=== PATIENT | male | born 1990 | race Caucasian/White ===

== ENCOUNTER 2016-09-29 16:55 | Inpatient (IN) | payer OTHER ==
[~2016-09-29] VITALS: Ht 177.8 cm; Wt 68.0 kg
[~2016-09-29 16:55] MED LIST: CEFTIN500 M1 PO; LIALDA1.2 G1 PO; PREDNISONE10 M2 PO; ROWASA 4 G4 GM/60 ML PR; SLOW FE142 MG
--- NOTE | 2016-09-29 17:19 | ED GENERAL ADULT ---
History of Present Illness General Chief Complaint: Chest Pain Stated Complaint: NECK PAIN/CP/SOB Source: patient Exam Limitations: no limitations Vital Signs & Intake/Output Vital Signs & Intake/Output Vital Signs Date Time Temp Pulse Resp B/P B/P Pulse O2 O2 Flow FiO2 Mean Ox Delivery Rate 09/29 1856 93 123/68 09/29 1753 97.0 103 22 122/66 96 Room Air 09/29 1700 98.7 120 18 130/85 120 Allergies Coded Allergies: lactobacillus (Intermediate, ABD PAIN, DIARRHEA 03/06/16) Reconcile Medications Cefuroxime Axetil (Ceftin) 500 MG TABLET 1 TAB PO BID URINARY TRACT INFECTION Ferrous Sulfate (Slow Fe) 142 MG (45 MG IRON) TABLET.ER UC (Reported) Mesalamine (Lialda) 1.2 GRAM TABLET.DR 4 TAB PO DAILY UC (Reported) Mesalamine W/Cleansing Wipes (Rowasa 4 Gm/60 Ml Enema Kit) 4 GRAM/60 ML ENEMA.KIT 4 GM NC AT BEDTIME colitis Prednisone 10 MG TABLET 30 MG PO BID UC (Reported) Triage Note: PT SENT IN BY DR. VERA FOR ? PE. PT WAS SEEN BY PCP AND SENT TO SEE DR. VERA PT HAS UC. PT TOLD DR. VERA THAT HE WAS HAVING CHEST PAIN AND NECK PAIN AND HE WAS SENT TO ED. AND Triage Nurses Notes Reviewed? yes Onset: Gradual Duration: week(s): (1), worse persistent since (3) Timing: no prior history Injury Environment: home Severity: moderate Severity Numbers: 6 Modifying Factors: Worsens With: movement. HPI: Patient is a 25-year-old male with history of ulcerative colitis presenting to the emergency department with chief complaint of shortness of breath and chest pain that has been going on for the last 1 week. Patient reports that it started as bilateral neck pain and shortness of breath. Shortness of breath is worse with exertion. Also worse with deep inspiration. The chest pain developed about 3 days ago and has been constant. Pain is worse when he is laying on his left side or if he is leaning forward. He finds a comfortable position laying flat on his back. Denies any palpitations. Denies any abdominal pain. No fevers or chills. Denies any recent upper respiratory infection or viral illness. No sick contacts or travel. has been taking Tylenol at home without relief. He was told by gastroenterology that he cannot take ibuprofen due to his ulcerative colitis. Denies any bloody stools. No urinary symptoms. No history of similar symptoms in the past. Denies any recent change in medication dosing. Denies any recent travel. Denies any leg swelling. (RAE APONTE) Past History Travel History Traveled to [place] past 21 day No Medical History Any Pertinent Medical History? 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 Age 53. MOTHER (50 y/o- [employer]). Age 50-60. PGM (& breast Ca). , Age 68; Cause: Bladder cancer. Hx Contributory? No (RAE APONTE) Review of Systems Review of Systems Constitutional: Reports: no symptoms. Comments Review of systems: See HPI, All other systems negative. Constitutional, no chills fever or weight loss HEENT: No visual changes no sore throat no congestion Cardiovascular: No palpitation , orthopnea or ankle swelling Skin, no jaundice no rashes Respiratory: No sputum or hemoptysis GI: No nausea no vomiting : No dysuria No hematuria Muscle skeletal: no back pain, no neck pain, Neurologic: No numbness no confusion Psych: No stress anxiety or depression,. Heme/endocrine: No bruising no bleeding no polyuria or polydipsia Immunology: No splenectomy or history of AIDS (RAE APONTE) Physical Exam Physical Exam General Appearance: well developed/nourished, no apparent distress, comfortable Comments: Well-developed well-nourished person in no acute distress HEENT: Pupils equally round and reactive to light and accommodation. Nose is atraumatic. External auditory canal and Tympanic membranes clear. Pharynx normal. No swelling or edema. Moist oral mucosa. Neck: Supple, no lymphadenopathy, normal range of motion without pain or tenderness Back: Nontender Cardiovascular: Tachycardic rate and rhythms no murmurs rubs or gallops, normal JVP. On a wheel to appreciate any friction rub on auscultation. Respiratory: Chest mildly tender to palpation over the left chest. No respiratory distress.breath sounds clear to auscultation bilaterally Abdomen: Soft, nontender nondistended, no appreciable organomegaly. Normal bowel sounds. No ascites, no rebound or guarding. Extremity: No edema, no calf tenderness to palpation, normal and equal pulses. Neuro: Alert oriented x3, motor sensory normal Skin: No appreciable rash on exposed skin, skin is warm and dry. Psych: Mood and affect is normal, memory and judgment is normal. Core Measures ACS in differential dx? Yes CVA/TIA Diagnosis: No Severe Sepsis Present: No Septic Shock Present: No (YSABEL BARLOW,RAE) Progress Differential Diagnoses I considered the following diagnoses in my evaluation of the patient: Pericarditis, ACS, pneumonia, costochondritis, pericardial effusion, myocarditis , pe Plan of Care: Orders Procedure Date/time Status Regular Diet 09/30 B Active Saline Lock 09/[address] in observation 09/29 2008 Active Misc Message 09/29 2008 Active ED Holding Orders 09/29 2008 Active Vital Signs 09/29 2008 Active Activity/Ambulation 09/29 2008 Active Code Status 09/29 2008 Active Add-on Test (ER Only) 09/29 1809 Active Telemetry/Base Manager 09/29 1755 Active WESTERGREN SED RATE 09/29 1728 Complete D-DIMER 09/29 1728 Complete C-REACTIVE PROTEIN 09/29 1728 Complete URINE DRUG SCREEN FOR ER ONLY 09/29 1720 Complete TROPONIN LEVEL 09/29 1720 Complete PARTIAL THROMBOPLASTIN TIME 09/29 1720 Complete PROTHROMBIN TIME 09/29 1720 Complete COMPREHENSIVE METABOLIC PANEL 09/29 1720 Complete CBC WITHOUT DIFFERENTIAL 09/29 1720 Complete EKG 09/29 1701 Active Laboratory Tests 09/29/16 1728: Anion Gap 13, Estimated GFR > 60, BUN/Creatinine Ratio 8.9, Glucose 93, Calcium 8.7, Total Bilirubin 0.3, AST 14 L, ALT 31, Alkaline Phosphatase 42, Troponin I < 0.01, C-Reactive Prot, Quant > 9.0 H, Total Protein 6.7, Albumin 3.7, Globulin 3.0, Albumin/Globulin Ratio 1.2, PT 14.3 H, INR 1.37 H, APTT 32, D- Dimer 997 H, CBC w Diff NO MAN DIFF REQ, RBC 4.51 L, MCV 70.8 L, MCH 21.8 L, RDW 17.6 H, MPV 7.8, Gran % 73.0, Lymphocytes % 13.8 L, Monocytes % 11.2 H, Eosinophils % 1.3, Basophils % 0.7, Absolute Granulocytes 9.0 H, Absolute Lymphocytes 1.7, Absolute Monocytes 1.4 H, Absolute Eosinophils 0.2, Absolute Basophils 0.1, PUBS MCHC 30.8 L, ESR Westergren 50 H, Urine Opiates Screen < 100.00, Methadone Screen < 40, Barbiturate Screen < 60, Ur Phencyclidine Scrn < 6.00, Amphetamines Screen < 100, U Benzodiazepines Scrn < 85, Urine Cocaine Screen < 50, Urine Cannabis Screen < 5.00 09/29/16 1726: D-Dimer Cancelled Diagnostic Imaging: Viewed by Me: CT Scan. Discussed w/RAD: CT Scan. Initial ED EKG: SINUS TACHYCARDIA AT 116 BPM, NONSPECIFIC t ABNORMALITIES Prior EKG: changed Comments: Spoke with Dr. Bolaños, recommending observation admission for echocardiogram and evaluation by cardiology. She does have ulcerative colitis, avoiding NSAIDs is usually recommended, we will consult GI for further evaluation as what medication would be best to treat the pericardial effusion. Patient is nontoxic , resting comfortably after morphine. (RAE APONTE) Departure Departure Time of Disposition: 1999 Disposition: STILL A PATIENT Condition: Stable Clinical Impression Primary Impression: Pericardial effusion Secondary Impressions: Pericarditis Qualifiers: Pericarditis type: unspecified type Chronicity: unspecified Qualified Code: I31.9 - Disease of pericardium, unspecified Referrals: MARLENI BOONE,[place] (PCP/Family) Departure Forms: Customer Survey General Discharge Information Observation Note Spoke With: JUAN BOONE,ELIEZER Physician Advisor Notified: DERRICK BOONE,DEREK Pillai Place Patient In: Non-ED OBS Care Area Rationale for Observation: My rational for observation is as follows . Patient requiring cardiology consultation, telemetry monitoring, may require NSAIDs first steroids versus colchicine for treatment of pericarditis ( may need GI consultation for this), echocardiogram. Due to the large size of pericardial effusion outpatient treatment NOT REcommended at this time. (RAE APONTE) Resident Co-Sign Statement Statement: ED Attending supervision documentation- [X] I saw and evaluated the patient. I have also reviewed all the pertinent lab results and diagnostic results. I agree with the findings and the plan of care as documented in the Resident's documentation. [X] I have reviewed the ED Record and agree with the Resident's documentation. [] Additions or exceptions (if any) to the Resident's note and plan are summarized below: [] (SHAE BOONE,DANIELLE Pillai) Critical Care Note Critical Care Note Critical Care Time: 30-74 min (RAE APONTE)
[2016-09-29 17:58] LABS: ABSOLUTE BASOPHIL COUNT 0.1 /CUMM (0.0-0.2); ABSOLUTE EOSINOPHIL COUNT 0.2 /CUMM (0.0-0.7); ABSOLUTE LYMPH COUNT 1.7 /CUMM (1.2-3.4); ABSOLUTE MONOCYTE COUNT 1.4 /CUMM (0.10-0.60); BASOPHIL % 0.7 % (0.0-2.0); EOSINOPHIL % 1.3 % (0-5); MEAN CORPUSCULAR HGB 21.8 PG (27.0-31.0); MEAN CORPUSCULAR HGB CONC 30.8 G/DL (33.0-37.0); MEAN CORPUSCULAR VOLUME 70.8 FL (80.0-94.0); MEAN PLATELET VOLUME 7.8 FL (7.4-10.4); PLATELET COUNT 497 /CUMM (130-400); RBC DISTRIBUTION WIDTH 17.6 % (11.5-14.5); RED BLOOD CELL CT 4.51 /CUMM (4.70-6.10); WHITE BLOOD CELL COUNT 12.3 /CUMM (4.8-10.8)
[2016-09-29 18:07] LABS: PT 14.3 SEC (9.4-12.5); PTT 32 SEC (25-37)
--- NOTE | 2016-09-29 19:12 | CT SCAN REPORT ---
EXAMINATION: CT ANGIOGRAM OF THE CHEST WITH AND WITHOUT CONTRAST (CT PULMONARY ANGIOGRAM FOR PE) CLINICAL INFORMATION: Shortness of breath and chest pain. Evaluate for a pulmonary embolus. COMPARISON: Multiple priors, most recent CT abdomen/pelvis dated 05/07/2016 and most recent chest radiographs dated 04/02/2016. TECHNIQUE: Prior to contrast administration, noncontrast localization images were obtained. Subsequently, multidetector volumetric imaging was performed from the thoracic inlet to below the diaphragms following the administration of 95 mL Optiray 350 intravenous contrast. No contrast reaction reported. Sagittal, coronal, and MIP oblique sagittal reformatted images were obtained on the CT workstation, uploaded to PACS, and reviewed. Total exam dose-length product 285.10 mGy-cm. FINDINGS: QUALITY OF STUDY/CONTRAST BOLUS: Satisfactory PULMONARY ARTERIES: No central or segmental pulmonary emboli. THORACIC AORTA: No aneurysm or dissection. LUNG: No focal consolidation, nodules or masses. PLEURA: There are small bilateral pleural effusions with mild adjacent atelectasis. There is no pneumothorax. MEDIASTINUM: There is a prominent pericardial effusion. The heart is not enlarged. No hilar or mediastinal lymphadenopathy. No evidence of septal bowing or right heart strain. CHEST WALL/AXILLA: No axillary or internal mammary lymphadenopathy. OSSEOUS STRUCTURES: No acute or suspicious osseous abnormality. UPPER ABDOMEN: Unremarkable. No reflux of contrast into the hepatic veins to suggest elevated right heart pressures. IMPRESSION: 1. No central or segmental pulmonary embolism. 2. New prominent pericardial effusion. 3. Small bilateral pleural effusions with mild adjacent atelectasis. VTE: negative These findings were discussed with Selin Parada via telephone at 6:59 PM on 09/29/2016.
--- NOTE | 2016-09-29 21:03 | History & Physical ---
ANDREA BOONE,ELDON 09/29/162100: General Information and HPI MD Statement: I have seen and personally examined RICHIE GODINEZ and documented this H&P. The patient is a 25 year old M who presented with a patient stated chief complaint of [chest pain]. Source of Information: patient, family Exam Limitations: no limitations History of Present Illness: This is a 25 yo male with PMH of UC on Humira every other Tuesday and Lialda 4.8 mg daily and was weaned off prednisone two weeks ago. He comes in for CC of worsening chest pain. Patient says that about a week ago his symptoms started with neck pain. Initially he thought it was musculoskeletal in origin but he also noted some fever at the same time. MAXIMUM TEMPERATURE 101 but patient states that his fever was a steady 100 throughout the week. Eventually, the neck pain radiated down and became a chest pain that can by localized with one finger. He describes the chest pain as a stabbing 6 out of 10 under his left pectoral. Today the pain started radiating to his back particularly with coughing. Patient states that the pain gets worse with exertion and changes in position. He states that if hephysically exerts himself he noticed the pain getting worse. He also states that if he sleeps on his left side the pain becomes 10 out of 10. Leaning forward and tripoding makes the pain worse. Patient took Tylenol, however he said it did not help the pain but it did improve his fevers. Patient went to see his PCP for evaluation of the pain. He had several labs drawn which were also sent to his tractor trailer operator Dr. Magallon. Patient spoke with Dr. Magallon on the phone and given his presentation he was advised to come to ED for further evaluation. Upon CT of the chest patient was found to have a pericardial effusion. He denies any recent travel or exotic ingestion. 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 No recent change in medications. Patient continues to take his Lialda and his Humira as prescribed. He denies any rash or tick bite. Denies any URI symptoms other than minor coryza. [place], [place] Brother was recently sick over the past two days but pt's symptoms started earlier last week. Allergies/Medications Allergies: Coded Allergies: lactobacillus (Intermediate, ABD PAIN, DIARRHEA 03/06/16) Home Med list Adalimumab (Humira Pen) 40 MG/0.8 ML PEN.IJ.KIT 1 SYR SC Q2W UC (Reported) Mesalamine (Lialda) 1.2 GRAM TABLET. 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 Age 53. MOTHER (50 y/o- [employer]). Age 50-60. PGM (& breast Ca). , Age 68; Cause: Bladder cancer. Psychosocial History Who Do You Live With? parent (M&F) Services at Home: None Primary Language: Kiswahili ETOH Use: denies use Illicit Drug Use: denies illicit drug use Living Will? no Power of Legal Secretary Receptionist/HCP? no Functional Ability ADLs Independent: dressing, eating, toileting, bathing. Ambulation: independent IADLs Independent: shopping, housework, finances, food prep, telephone, transportation , medication admin. Review of Systems Review of Systems Constitutional: Reports: fever. Denies: chills, diaphoresis, malaise, weakness. EENTM: Reports: no symptoms. Denies: blurred vision, visual changes, ear pain, nasal congestion, nasal pain, throat pain. Cardiovascular: Reports: chest pain. Denies: edema, orthopena, palpitations, peripheral edema, syncope. Respiratory: Denies: cough, hemoptysis, orthopnea, short of breath, sputum production, stridor, wheezing. GI: Reports: diarrhea, bloody stool. Genitourinary: Reports: no symptoms. Musculoskeletal: Reports: neck pain. Denies: joint pain, joint swelling. Skin: Reports: no symptoms. Exam & Diagnostic Data Last 24 Hrs of Vital Signs/I&O Vital Signs Date Time Temp Pulse Resp B/P B/P Pulse O2 O2 Flow FiO2 Mean Ox Delivery Rate 09/298 99.2 96 18 120/76 96 Room Air 09/29 2227 97.5 103 18 118/65 97 Room Air Room Air 09/29 2212 96 Room Air 09/29 1856 93 123/68 09/29 1753 97.0 103 22 122/66 96 Room Air 09/29 1700 98.7 120 18 130/85 120 Physical Exam General Appearance Alert, Oriented X3, Cooperative, No Acute Distress Skin No Rashes, No Breakdown, No Significant Lesion HEENT Atraumatic, PERRLA, EOMI, Mucous Membr. moist/pink Neck Supple, No LAD Cardiovascular Regular Rate, Normal S1, Normal S2, No Murmurs, Rubs Lungs Normal Air Movement Abdomen Soft, No Tenderness Neurological Normal Speech, Strength at 5/5 X4 Ext, Normal Tone, Sensation Intact, Cranial Nerves 3-12 NL Extremities No Edema Last 24 Hrs of Labs/Reji: Laboratory Tests 09/29/161727: Anion Gap 13, Estimated GFR > 60, BUN/Creatinine Ratio 8.9, Glucose 93, Calcium 8.7, Total Bilirubin 0.3, AST 14 L, ALT 31, Alkaline Phosphatase 42, Troponin I < 0.01, C-Reactive Prot, Quant > 9.0 H, Total Protein 6.7, Albumin 3.7, Globulin 3.0, Albumin/Globulin Ratio 1.2, PT 14.3 H, INR 1.37 H, APTT 32, D- Dimer 997 H, CBC w Diff NO MAN DIFF REQ, RBC 4.51 L, MCV 70.8 L, MCH 21.8 L, RDW 17.6 H, MPV 7.8, Gran % 73.0, Lymphocytes % 13.8 L, Monocytes % 11.2 H, Eosinophils % 1.3, Basophils % 0.7, Absolute Granulocytes 9.0 H, Absolute Lymphocytes 1.7, Absolute Monocytes 1.4 H, Absolute Eosinophils 0.2, Absolute Basophils 0.1, PUBS MCHC 30.8 L, ESR Westergren 50 H, Urine Opiates Screen < 100.00, Methadone Screen < 40, Barbiturate Screen < 60, Ur Phencyclidine Scrn < 6.00, Amphetamines Screen < 100, U Benzodiazepines Scrn < 85, Urine Cocaine Screen < 50, Urine Cannabis Screen < 5.00 05/24/17 1726: D-Dimer Cancelled Assessment/Plan Assessment: This is a 25-year-old male past medical history significant for ulcerative colitis on room air and the Aldara who comes in for chief complaint of chest pain. Further imaging showed moderate-sized pericardial effusion on CT chest. CT CHEST: IMPRESSION: 1. No central or segmental pulmonary embolism. 2. New prominent pericardial effusion. 3. Small bilateral pleural effusions with mild adjacent atelectasis. CBC shows: wbc 12.3, Hb 9.8, HCT 32.0, Plt 497, MCV 70.8 ESR 50, CRP> 9.0 INR 1.37, D-dimer 997, Na 134, EKG shows tachycardia with QTC [address] depressions in 2,3, aVF PLAN 1. Pericardial effusion: Pt c/o chest pain that is positional and exertional. CT chest shows new prominent pericardial effusion. There is concern for possible pericarditis given that he had fever up to 101 previously, EKG changes, and positional chest pain. No rub on cardiac exam. Regarding pericarditis management there is question about risk/benefit of NSAID given his UC. At this time will continue with morphine. * monitor on tele * Echocardiogram * Cardio consult * Monitor EKG and trops * I/Os * check tsh and t4 * Possibility of Lialda causing pericardial effusion? 2. UC: He follows w/ Dr. Magallon. Pt does endorse some recent flare up and intermittent bloody stool. He is due for change in regimen for 6-MP and Uceris. * Con't home regimen * GI consult in AM regarding risk/benefit of NSAID 3. Anemia: Likely 2/2 his UC and intermittent bloody bowel movements. * Monitor CBC 4. Leukocytosis: Pt has wbc 12.3. He seems to have persistent leukocytosis in his previous labs. Unsure of etiology. During last visit he had pyelonephritis and was appropriateley treated. Denies any urinary symptoms at this time. Unsure of etiology of leukocytosis. Was previously on prednisone two weeks ago. * monitor CBC * Monitor for constitutional symptoms such as fever etc. 5. Elevated D-dimer: Negative CTA for PE. Possibly 2/2 UC. FULL CODE REGULAR DIET ALPS ppx As Ranked By This Provider Problem List: 1. Iron deficiency anemia 2. Abdominal pain, unspecified site 3. Ulcerative colitis 4. Pericardial effusion Core Measures/Miscellaneous Acute Coronary Syndrome ACS Diagnosis: No Cerebrovascular Accident CVA/TIA Diagnosis: No Congestive Heart Failure CHF Diagnosis: No Venous Thromboembolism VTE Risk Factors: Acute medical illness No [facility] VTE prophylaxis d/t: No contraindications No VTE Pharm Prophylaxis d/t: No contraindications VTE Diagnosis: No VTE Type: NONE VTE Confirmed by (Test): NONE Severe Sepsis Severe Sepsis Present: No Septic Shock Septic Shock Present: No Miscellaneous Documentation Attending Case Discussed With: ELIEZER MARTINEZ MD Primary Care Physician: HUI YEPEZ MD Patient sees these Specialists Dr. Magallon Level of Patient Care: Telemetry Consults Needed: Consulting Specialty: Gastroenterology UL DUTCH BOONE,DON 09/29/16 2250: Assessment/Plan Assessment: Resident Review Statement Resident Statement: examined this patient, discussed with application internship, agreed with application internship, discussed with family Other Findings: 25-year-old man with past medical history of ulcerative colitis on mesalamine and Humira came to emergency department with chief complaint of chest pain that started 3-4 days ago. Patient was experiencing neck pain 3-4 days before having the chest pain. Chest pain is sharp, stabbing in nature, 6/10, radiates to right scapula and worsens with exertion and discomfort and patient lysed with the left site. According to patient it also hurts and bending forward. Patient also had a fever 101 with some runny nose, a week before coming to the emergency department. Patient went to PCP and had labs done. He was told to go to ED for complete evaluation by . Vitals in emergency department patient, fever of 99.2, no tachycardia no tachypnea, pressure 120 and diastolic blood pressure 76, oxygen saturation of 96 % on room air. On examination patient was in mild distress, S1 and S2 audible without any murmurs, no distant heart sounds, no JVD. Clear lungs, grossly intact abdominal and neurological examination. EKG showed heart rate of 116, no axis deviation, TX of 132, QTC of 378, ST depression in 2, 3 and aVF. Troponin was less than 0.[address] showed No central or segmental pulmonary embolism, New prominent pericardial effusion and Small bilateral pleural effusions with mild adjacent atelectasis. Patient was admitted on telemetry for the management of following problems Causes of pericardial effusion is not clear, recent symptoms of upper respiratory tract infection with a fever of 101 week ago with chest pain point towards the possible diagnosis of pericarditis secondary to a possible viral infection. Patient did not have any recent radiation or any history of chronic kidney disease and malignancy in the past. They also note the possibility of any recent acute myocardial infarction. - Admit to telemetry - Vitals q Shift - Monitor I/O - Daily weight - Cardio consult - Consider ECHO - Since patient has a diagnosis of ulcerative colitis we will avoid NSAIDS and colchicine -Give regular dinner Patient is on pain pathway Patient is on regular diet Patient is full code Patient is on SQ heparin for DVT prophylaxis JUAN BOONE, [facility] 09/29/16 2346: Attending MD Review Statement Attending Statement Attending MD Statement: examined this patient, discuss w/resident/PA/SISAL PICKER, agreed w/resident/PA/SISAL PICKER, discussed with family Attending Assessment/Plan: 25 yo M with h/o ulcerative colitis on Humira, pw c/o exertional dyspnea and pleuritic chest pain for past 1 week. Started off as neck pain then followed by left sided chest pain worse with movement, exertion, radiating to the back. Leaning forward does not ease it. He reports fever 101 and rhinorrhea few days ago. Brother was also sick with flu like symptoms in the past week. He was last admitted to [facility] for anemia 2/2 UC was maintained on prednisone that was tapered off two weeks ago, and also treated for possible pyelonephritis with Ceftin. Patient reports few recent episodes of bloody diarrhea, and as per GI he is being transitioned to 6-MP and Uceris. Vitals stable except for tachycardia. Exam does not reveal pericardial rub, patient is able to pinpoint the chest tenderness to under the left nipple. Labs: WBC 12.3, H/H 9.8/32, Plt 497, ESR 50, INR 1.37, D-dimer 997, trop neg, CRP> 9.0 , Utox neg. Chest CTA: no PE, new prominent pericardial effusion, small b/l pleural effusions. EKG: sinus tachycardia, TWI in inferior leads and V3-6 ( possibly stage 3 of pericarditis) 1. New pericardial effusion with possible viral pericarditis in the setting of recent URI. No signs of acute infection. Renal functions are normal. Patient has been on Lialda, but there is a <1% chance of developing pericarditis with Lialda. 23 Obs on Telemetry, monitor for arrhythmias, serial EKG and troponin, obtain echo and Cardio consult. IV morphine for pain control. Avoid NSAIDs given h/o ulcerative colitis. ?consider steroids after discussing with GI. Chech TSH and free T4. 2. H/o ulcerative colitis. Resume rowasa enemas. Patient to initiate 6-MP and Uceris on discharge with close follow up with GI. DVT ppx Alps. Full code.
[2016-09-29] MEDS ORDERED: HUMIRA PEN40 MG/0.8 SC (22:41)
[2016-09-29 22:48] VITALS: BP 120/76
--- NOTE | 2016-09-30 07:52 | PN- Housestaff ---
ALEX BOONE,[facility] 09/30/16 0752: Subjective Follow-up For: Chest pain Ulcerative colitis Tele-Events Since Last Visit: Sinus rhythm, heart rate 82-96, with no overnight events Subjective: Tmax 99.2, hemodynamically stable, saturating well on room air. Patient is still complaining of pleuritic chest pain over left fourth intercostal space. Patient denies fever or chills since admission. Patient denies any other current active complaints. Review of Systems Constitutional: Reports: see HPI. Objective Last 24 Hrs of Vital Signs/I&O Vital Signs Date Time Temp Pulse Resp B/P B/P Pulse O2 O2 Flow FiO2 Mean Ox Delivery Rate 09/30 1139 Room Air Room Air 09/30 0838 99.0 84 15 102/58 99 Room Air 09/30 0000 Room Air 09/29 2248 99.2 96 18 120/76 96 Room Air 09/29 2227 97.5 103 18 118/65 97 Room Air Room Air 09/29 2212 96 Room Air 09/29 1856 93 123/68 09/29 1753 97.0 103 22 122/66 96 Room Air 09/29 1700 98.7 120 18 130/85 120 Intake & Output 09/30 1600 09/30 0800 09/30 0000 Intake Total 900 400 0 Output Total Balance 900 400 0 Intake, IV 0 Intake, Oral 900 400 0 Number 1 3 Bowel Movements Patient 68.039 kg 68.039 kg Weight Weight Reported by Patient Measurement Method Physical Exam General Appearance: Alert, Oriented X3, Cooperative, No Acute Distress HEENT: Atraumatic, PERRLA, EOMI, Mucous Membr. moist/pink Cardiovascular: Regular Rate, Normal S1, Normal S2, No Murmurs Lungs: Clear to Auscultation, Normal Air Movement Abdomen: Normal Bowel Sounds, Soft, No Tenderness Neurological: Normal Gait, Normal Speech Extremities: No Clubbing, No Cyanosis, No Edema Current Medications: Current Medications Sig/Melody Start time Last Medication Dose Route Stop Time Status Admin Acetaminophen 650 MG Q6P PRN 09/29 2245 AC PO Colchicine 600 MCG DAILY 09/30 1422 AC PO Heparin Sodium 5,000 UNIT Q8 09/30 0600 CAN (Porcine) SC Lactase 1 TAB AC 09/30 1200 AC 09/30 PO 1226 Mesalamine 1,600 MG TID 09/30 1000 AC 09/30 PO 0944 Morphine Sulfate 2 MG Q4-6 PRN PRN 09/29 2245 AC 09/29 IV 2257 Morphine Sulfate 0 .STK-MED ONE 09/29 1806 DC .ROUTE Morphine Sulfate 2 MG ONCE ONE 09/29 1800 DC 09/29 IV 09/29 1801 1813 Ondansetron HCl 4 MG Q6P PRN 09/30 0315 AC 09/30 IV 0310 Ondansetron HCl 0 .STK-MED ONE 09/29 1807 DC .ROUTE Ondansetron HCl 4 MG ONCE ONE 09/29 1800 DC 09/29 IV 09/29 1801 1813 Oxycodone HCl 5 MG Q6P PRN 09/29 2244 09/30 PO 0943 Patient Medication 1 ED .STK-MED ONE 09/30 1349 DC Teaching ED 09/30 1350 Last 24 Hrs of Lab/Reji Results Last 24 Hrs of Labs/Mics: Laboratory Tests 09/30/16 1021: Lyme Disease Antibody Pending 09/30/16 0804: CBC w Diff NO MAN DIFF REQ, RBC 4.19 L, MCV 70.6 L, MCH 21.8 L, RDW 17.7 H, MPV 7.9, Gran % 79.9 H, Lymphocytes % 8.5 L, Monocytes % 10.1 H, Eosinophils % 1.4, Basophils % 0.1, Absolute Granulocytes 9.8 H, Absolute Lymphocytes 1.0 L, Absolute Monocytes 1.2 H, Absolute Eosinophils 0.2, Absolute Basophils 0, PUBS MCHC 30.9 L 09/29/16 2335: Troponin I < 0.01, TSH 2.100, Free T4 1.51 09/29/16 1728: Anion Gap 13, Estimated GFR > 60, BUN/Creatinine Ratio 8.9, Glucose 93, Calcium 8.7, Total Bilirubin 0.3, AST 14 L, ALT 31, Alkaline Phosphatase 42, Troponin I < 0.01, C-Reactive Prot, Quant > 9.0 H, Total Protein 6.7, Albumin 3.7, Globulin 3.0, Albumin/Globulin Ratio 1.2, PT 14.3 H, INR 1.37 H, APTT 32, D- Dimer 997 H, CBC w Diff NO MAN DIFF REQ, RBC 4.51 L, MCV 70.8 L, MCH 21.8 L, RDW 17.6 H, MPV 7.8, Gran % 73.0, Lymphocytes % 13.8 L, Monocytes % 11.2 H, Eosinophils % 1.3, Basophils % 0.7, Absolute Granulocytes 9.0 H, Absolute Lymphocytes 1.7, Absolute Monocytes 1.4 H, Absolute Eosinophils 0.2, Absolute Basophils 0.1, PUBS MCHC 30.8 L, ESR Westergren 50 H, Urine Opiates Screen < 100.00, Methadone Screen < 40, Barbiturate Screen < 60, Ur Phencyclidine Scrn < 6.00, Amphetamines Screen < 100, U Benzodiazepines Scrn < 85, Urine Cocaine Screen < 50, Urine Cannabis Screen < 5.00 09/29/16 1726: D-Dimer Cancelled Assessment/Plan Assessment: 25-year-old male H significant for ulcerative colitis comes in for chief complaint of chest pain. Further imaging showed moderate-sized pericardial effusion on CT chest. CT CHEST IMPRESSION: 1. No central or segmental pulmonary embolism. 2. New prominent pericardial effusion. 3. Small bilateral pleural effusions with mild adjacent atelectasis. Labs on admission: CBC shows: wbc 12.3, Hb 9.8, HCT 32.0, Plt 497, MCV 70.8 ESR 50, CRP> 9.0 INR 1.37, D-dimer 997, Na 134, EKG on admission EKG shows tachycardia with QTC [address] depressions in 2,3, aVF PLAN #Pericardial effusion: Pt c/o pleuritic chest pain that is also positional. CT chest shows new prominent pericardial effusion. There is concern for possible pericarditis given that he had subjective fever up to 101 at home, EKG changes, and positional chest pain. No rub on cardiac exam. ACS was ruled out. TFT was WNL. * Echocardiogram pending * We will start patient on colchicine once daily * Cardio and GI are on board #UC: He follows w/ Dr. Magallon. Pt does endorse some recent flare up and intermittent bloody stool. He is due for change in regimen for 6-MP and Uceris. * Con't home regimen * GI is on board #Anemia: Likely 2/2 his UC and intermittent bloody bowel movements. * Monitor CBC #Elevated D-dimer: Negative CTA for PE. * NTD FULL CODE REGULAR DIET ALPS ppx Problem List: 1. Pericardial effusion Pain Ratin Pain Location: left chest Pain Goal: Remain pain free Pain Plan: See A&P Tomorrow's Labs & Rationales: CBC and BEP Consulting Request: Consulting Specialty: Gastroenterology RUT SOMMER MD 09/30/16 1444: Attending MD Review Statement Attending Statement Attending MD Statement: examined this patient, discuss w/resident/PA/HEALTH RECORDS TECHNOLOGY TEACHER, agreed w/resident/PA/HEALTH RECORDS TECHNOLOGY TEACHER, discussed with family, reviewed EMR data (avail), discussed with nursing, discussed with case mgmt, reviewed images, amended to note Attending Assessment/Plan: The patient was seen and discussed with house staff, Cardiology (Dr. Roman) and ID (Dr. Eubanks to see). Concern regarding this young patient with fever, leukocytosis (left shift) and moderate pericardial effusion on immunosuppressive therapy. Need to admit to hospital to evaluate cultures, begin colchicine. Possibility of bacterial pericarditis may be considered. Dr. Roman agrees that patient should be admitted as will require more than 23 hours to fully evaluate.
[2016-09-30 08:38] VITALS: BP 102/58
[2016-09-30 09:00] LABS: ABSOLUTE BASOPHIL COUNT 0 /CUMM (0.0-0.2); ABSOLUTE EOSINOPHIL COUNT 0.2 /CUMM (0.0-0.7); ABSOLUTE GRANULOCYTE CT 9.8 /CUMM (1.4-6.5); ABSOLUTE MONOCYTE COUNT 1.2 /CUMM (0.10-0.60); BASOPHIL % 0.1 % (0.0-2.0); EOSINOPHIL % 1.4 % (0-5); GRANULOCYTE % 79.9 % (42.2-75.2); HEMATOCRIT 29.6 % (42-52); MEAN CORPUSCULAR HGB 21.8 PG (27.0-31.0); MEAN CORPUSCULAR HGB CONC 30.9 G/DL (33.0-37.0); MEAN CORPUSCULAR VOLUME 70.6 FL (80.0-94.0); MEAN PLATELET VOLUME 7.9 FL (7.4-10.4); PLATELET COUNT 429 /CUMM (130-400); RBC DISTRIBUTION WIDTH 17.7 % (11.5-14.5); RED BLOOD CELL CT 4.19 /CUMM (4.70-6.10); WHITE BLOOD CELL COUNT 12.2 /CUMM (4.8-10.8)
--- NOTE | 2016-09-30 10:06 | PN- Student ---
Subjective Subjective: CC: Worsening chest pain HPI: Patient is a 25-year-old man with a past medical history significant for microcytic anemia and ulcerative colitis on daily Lialda and Humira (every other Tuesday) who presented to [facility] on 09/29/2016 complaining of worsening chest pain. He reports that the pain began a week ago at the back of his neck. Roughly 2-3 days following his neck pain, he began developping left- sided, localized chest pain below the left nipple. The pain is described as a 6 out of 10 stabbing pain that does not resolve with Tynelol. The patient also reports that he has had a consistent fever of 100 throughout the week with a high of 101.9. Coughing, burping, leaning too far forward, straining, walking, and deep inspirations worsen the pain and cause it to radiate to the back. Of particular note, the pain is described as a 10 out of 10 stabbing pain when laying on his left side. Upon visiting his primary care physician, multiple labs were drawn which were sent to his [facility], Dr. Magallon. Patient denies any rash, tick bite, upper respiratory tract infections. He does report fever, chest pain, bloody diarrhea, and posterior neck pain. Past Medical History: Ulcerative Collitis (03/11/2016), Microcytic Anemia Past Surgical History: Non-contributory Family History: Patient's mother and father are both alive and well. His paternal grandmother had a history of breast cancer. His maternal grandmother had a history of myocardial infarction. His maternal grandfather is currently being treated for prostate cancer. Psychosocial History: Patient lives at home with his parents. He denies any smoking, alcohol, or illicit drug use. Medication List Adalimumab (Humira Pen) 40 mg/0.8 mL Pen.IJ.Kit - 1 Syr SC Q2W (UC) Mesalamine (Lialda) 1.2 Gram Tablet.DR - 4 Tab PO Daily (UC) Allergies: Lactobacillus (Intermediate - Abdominal pain; Diarrhea) Review of Systems: Fever, Left-Sided Chest pain, Diarrhea, Bloody Stool, Posterior Neck pain Objective Objective: Vital Signs Date Time Temp Pulse Resp B/P B/P Pulse O2 O2 Flow FiO2 Mean Ox Delivery Rate 09/30 1139 Room Air Room Air 09/30 0838 99.0 84 15 102/58 99 Room Air 09/30 0000 Room Air 09/29 2248 99.2 96 18 120/76 96 Room Air 09/29 2227 97.5 103 18 118/65 97 Room Air Room Air 09/29 2212 96 Room Air 09/29 1856 93 123/68 09/29 1753 97.0 103 22 122/66 96 Room Air 09/29 1700 98.7 120 18 130/85 120 Intake & Output 09/30 1600 09/30 0800 09/30 0000 Intake Total 400 0 Output Total Balance 400 0 Intake, IV 0 Intake, Oral 400 0 Number 3 Bowel Movements Patient 150 lb 150 lb Weight Weight Reported by Patient Measurement Method Physical Exam General Appearance Alert, Oriented X3, Cooperative, No Acute Distress Skin No Rashes, No Breakdown, No Significant Lesion HEENT Atraumatic, PERRLA, EOMI, Mucous Membr. moist/pink Neck Supple, No LAD Cardiovascular Regular Rate, Normal S1, Normal S2, No Murmurs, No Rubs Lungs Normal Bilateral Air Movement Abdomen Soft, No Tenderness Extremities No Edema Current Medications Sig/Melody Start time Last Medication Dose Route Stop Time Status Admin Acetaminophen 650 MG Q6P PRN 09/29 224 AC PO Heparin Sodium 5,000 UNIT Q8 09/30 0600 CAN (Porcine) SC Lactase 1 TAB AC 09/30 1200 AC 09/30 PO 1226 Mesalamine 1,600 MG TID 09/30 1000 AC 09/30 PO 0944 Morphine Sulfate 2 MG Q4-6 PRN PRN 09/29 2245 AC 09/29 IV 2257 Morphine Sulfate 0 .STK-MED ONE 09/29 180 DC .ROUTE Morphine Sulfate 2 MG ONCE ONE 09/29 1800 DC 09/29 IV 09/29 1801 1813 Ondansetron HCl 4 MG Q6P PRN 09/30 0315 AC 09/30 IV 0310 Ondansetron HCl 0 .STK-MED ONE 09/29 180 DC .ROUTE Ondansetron HCl 4 MG ONCE ONE 09/29 1800 DC 09/29 IV 09/29 1801 1813 Oxycodone HCl 5 MG Q6P PRN 09/29 2245 AC 09/30 PO 0943 Laboratory Tests 09/30/16 1021: Lyme Disease Antibody Pending 09/30/16 0804: CBC w Diff NO MAN DIFF REQ, RBC 4.19 L, MCV 70.6 L, MCH 21.8 L, RDW 17.7 H, MPV 7.9, Gran % 79.9 H, Lymphocytes % 8.5 L, Monocytes % 10.1 H, Eosinophils % 1.4, Basophils % 0.1, Absolute Granulocytes 9.8 H, Absolute Lymphocytes 1.0 L, Absolute Monocytes 1.2 H, Absolute Eosinophils 0.2, Absolute Basophils 0, PUBS MCHC 30.9 L 09/29/16 2335: Troponin I < 0.01, TSH 2.100, Free T4 1.51 09/29/16 1728: Anion Gap 13, Estimated GFR > 60, BUN/Creatinine Ratio 8.9, Glucose 93, Calcium 8.7, Total Bilirubin 0.3, AST 14 L, ALT 31, Alkaline Phosphatase 42, Troponin I < 0.01, C-Reactive Prot, Quant > 9.0 H, Total Protein 6.7, Albumin 3.7, Globulin 3.0, Albumin/Globulin Ratio 1.2, PT 14.3 H, INR 1.37 H, APTT 32, D- Dimer 997 H, CBC w Diff NO MAN DIFF REQ, RBC 4.51 L, MCV 70.8 L, MCH 21.8 L, RDW 17.6 H, MPV 7.8, Gran % 73.0, Lymphocytes % 13.8 L, Monocytes % 11.2 H, Eosinophils % 1.3, Basophils % 0.7, Absolute Granulocytes 9.0 H, Absolute Lymphocytes 1.7, Absolute Monocytes 1.4 H, Absolute Eosinophils 0.2, Absolute Basophils 0.1, PUBS MCHC 30.8 L, ESR Westergren 50 H, Urine Opiates Screen < 100.00, Methadone Screen < 40, Barbiturate Screen < 60, Ur Phencyclidine Scrn < 6.00, Amphetamines Screen < 100, U Benzodiazepines Scrn < 85, Urine Cocaine Screen < 50, Urine Cannabis Screen < 5.00 09/29/16 1726: D-Dimer Cancelled Assessment/Plan Assessment: Patient is a 25-year-old man with a past medical history significant for microcytic anemia and ulcerative colitis on daily Lialda and Humira (every other Tuesday) who presented to [facility] on 09/29/2016 complaining of worsening chest pain. He reports that the pain began a week ago at the back of his neck. Roughly 2-3 days following his neck pain, he began developping left- sided, localized chest pain below the left nipple. The pain is described as a 6 out of 10 stabbing pain that does not resolve with Tynelol. Coughing, burping, leaning too far forward, straining, walking, and deep inspirations worsen the pain and cause it to radiate to the back. Of particular note, the pain is described as a 10 out of 10 stabbing pain when laying on his left side. CT CHEST - 09/29/2016 IMPRESSION 1. No central or segmental pulmonary embolism. 2. New prominent pericardial effusion. 3. Small bilateral pleural effusions with mild adjacent atelectasis. 1. Pericardial effusion. Patient was admitted to [facility] with worsening chest pain. He reports that the pain worsens and radiates to the back with certain activities such as coughing, burping, leaning too far forward, straining, walking, and deep inspirations. Chest CTA on 09/29/2016 showed new prominent pericardial effusion. There is concern for pericarditis given his recent fever, EKG changes, and positional chest pain. Etiology unknown. Possibly a side effect of his medications. No rubs were auscultated on cardiac exam. * Colchicine 600 mcg daily PO * Oxycodone * Monitor telemetry * Echocardiogram * Cardio consult * Monitor EKG and troponins * I/Os 2. UC. Patient follows-up with his [facility] P[facility], Dr. Magallon. He reports a recent flare-up of his ulcerative colitis with intermittent bloody stools. He is due for a change in regimen to 6-Mecaptopurine and Uceris. * Mesalamine 1,600 mg TID PO * GI consult 3. Anemia. Likely due to his ulcerative colitis and intermittent bloody bowel movements. * Monitor CBC 4. Leukocytosis. Patient has persistent leukocytosis with a current WBC of 12.2. Unknown etiology. On his last visit to the hospital, he was found to have pyelonephritis and was appropriateley treated. Denies any urinary symptoms at this time. Was previously on prednisone and weaned off two weeks ago. * Monitor CBC * Monitor for constitutional symptoms such as fever, etc. 5. Elevated D-dimer. Chest CTA on 09/29/2016 found no evidence of pulmonary embolism. Possibly due to ulcerative colitis. ALPS Prophylaxis Regular Diet Full Code
[2016-09-30 16:29] VITALS: BP 102/63
--- NOTE | 2016-09-30 16:42 | Cons- Infect Disease ---
General Information and HPI Consulting Request Date of Consult: 09/30/16 Requested By: RUT SOMMER MD Reason for Consult: Rule out pericarditis Source of Information: patient, old records History of Present Illness: This is a 25-year-old man with a history of ulcerative colitis, diagnosed over 6 months prior to admission, treated initially with steroids, which were discontinued but restarted several months prior to admission after a relapse, with discontinuation again 2 weeks prior to admission, Humira every 2 weeks, Mesalamine and, in the past, Rowasa enemas, with recurrence of his symptoms of bloody diarrhea and abdominal cramps 10 days prior to admission, admitted on September 29 after he was referred to the emergency room with a five-day history of left- sided chest pain, worse with movement and inspiration, neck pain, mild headaches , malaise, anorexia, with decreased oral intake, fevers to 101.9 and chills. On admission he was afebrile. Laboratory data revealed a white blood cell count of 11,000, ESR 54, BUN/creatinine 8 and 0.9, with normal liver enzymes, INR 1.37. CTA of the chest was negative for pulmonary emboli, but revealed a prominent pericardial effusion and small bilateral pleural effusions. He has remained afebrile overnight. At present he feels somewhat improved though still reports left chest discomfort. He has been active outdoors and has found ticks on his dogs, but has not noted any ticks or rash on himself. Allergies/Medications Allergies: Coded Allergies: lactobacillus (Intermediate, ABD PAIN, DIARRHEA 03/06/16) Home Med List: Adalimumab (Humira Pen) 40 MG/0.8 ML PEN.IJ.KIT 1 SYR SC Q2W UC (Reported) Mesalamine (Lialda) 1.2 GRAM TABLET. 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 Age 53. MOTHER (50 y/o- [employer]). Age 50-60. PGM (& breast Ca). , Age 68; Cause: Bladder cancer. Psychosocial History Who Do You Live With? parent (M&F) Services at Home: None Primary Language: Uzbek Smoking Status: Never Smoked ETOH Use: denies use Illicit Drug Use: denies illicit drug use Living Will? no Power of Assistant Professor Of Anthropology/HCP? no Functional Ability ADLs Independent: dressing, eating, toileting, bathing. Ambulation: independent IADLs Independent: shopping, housework, finances, food prep, telephone, transportation , medication admin. Review of Systems Review of Systems Constitutional: Denies: unexplained weight loss. Respiratory: Denies: cough, short of breath. Musculoskeletal: Reports: neck pain. Denies: joint pain, muscle pain. Skin: Denies: rash. All Other Systems: Reviewed and Negative Exam & Diagnostic Data Last 24 Hrs of Vital Signs/I&O Vital Signs Date Time Temp Pulse Resp B/P B/P Pulse O2 O2 Flow FiO2 Mean Ox Delivery Rate 09/30 1139 Room Air Room Air 09/30 0838 99.0 84 15 102/58 99 Room Air 09/30 0000 Room Air 09/29 2248 99.2 96 18 120/76 96 Room Air 09/29 2227 97.5 103 18 118/65 97 Room Air Room Air 09/29 2212 96 Room Air 09/29 1856 93 123/68 09/29 1753 97.0 103 22 122/66 96 Room Air 09/29 1700 98.7 120 18 130/85 120 Intake & Output 09/30 1600 09/30 0800 09/30 0000 Intake Total 900 400 0 Output Total Balance 900 400 0 Intake, IV 0 Intake, Oral 900 400 0 Number 1 3 Bowel Movements Patient 150 lb 150 lb Weight Weight Reported by Patient Measurement Method Physical Exam Other Physical Findings: He is awake and alert in no acute distress. He is afebrile. Skin reveals no rash. HEENT exam is negative. Neck is supple with no adenopathy. Lungs are clear. Chest mild tenderness on palpation over the left chest, with no relief of his pain with leaning forward. Heart regular rhythm with no murmur. Abdomen is soft, nontender with positive bowel sounds. Back no CVA tenderness. Extremities no cyanosis, clubbing or edema. Neuro is without focality. Last 24 Hours of Lab Results: Laboratory Tests 09/30 09/30 09/29 1021 0804 2335 Chemistry Troponin I (<0.11 ng/ml) < 0.01 TSH (0.270 - 4.200 uIU/mL) 2.100 Free T4 (0.79 - 2.35 ng/dL) 1.51 Hematology CBC w Diff NO MAN DIFF REQ WBC (4.8 - 10.8 /CUMM) 12.2 H RBC (4.70 - 6.10 /CUMM) 4.19 L Hgb (14.0 - 18.0 G/DL) 9.1 L Hct (42 - 52 %) 29.6 L MCV (80.0 - 94.0 FL) 70.6 L MCH (27.0 - 31.0 PG) 21.8 L RDW (11.5 - 14.5 %) 17.7 H Plt Count (130 - 400 /CUMM) 429 H MPV (7.4 - 10.4 FL) 7.9 Gran % (42.2 - 75.2 %) 79.9 H Lymphocytes % (20.5 - 51.1 %) 8.5 L Monocytes % (1.7 - 9.3 %) 10.1 H Eosinophils % (0 - 5 %) 1.4 Basophils % (0.0 - 2.0 %) 0.1 Absolute Granulocytes (1.4 - 6.5 /CUMM) 9.8 H Absolute Lymphocytes (1.2 - 3.4 /CUMM) 1.0 L Absolute Monocytes (0.10 - 0.60 /CUMM) 1.2 H Absolute Eosinophils (0.0 - 0.7 /CUMM) 0.2 Absolute Basophils (0.0 - 0.2 /CUMM) 0 PUBS MCHC (33.0 - 37.0 G/DL) 30.9 L Serology Lyme Disease Antibody Pending 09/29 09/29 1728 1726 Chemistry Sodium (137 - 145 mmol/L) 134 L Potassium (3.5 - 5.1 mmol/L) 4.0 Chloride (98 - 107 mmol/L) 97 L Carbon Dioxide (22 - 30 mmol/L) 24 Anion Gap (5 - 16) 13 BUN (9 - 20 mg/dL) 8 L Creatinine (0.7 - 1.2 mg/dL) 0.9 Estimated GFR (>60 ml/min) > 60 BUN/Creatinine Ratio (7 - 25 %) 8.9 Glucose (65 - 99 mg/dL) 93 Calcium (8.4 - 10.2 mg/dL) 8.7 Total Bilirubin (0.2 - 1.3 mg/dL) 0.3 AST (17 - 59 U/L) 14 L ALT (21 - 72 U/L) 31 Alkaline Phosphatase (< 127 U/L) 42 Troponin I (<0.11 ng/ml) < 0.01 C-Reactive Prot, Quant (<1.0 mg/dL) > 9.0 H Total Protein (6.3 - 8.2 g/dL) 6.7 Albumin (3.5 - 5.0 g/dL) 3.7 Globulin (1.9 - 4.2 gm/dL) 3.0 Albumin/Globulin Ratio (1.1 - 2.2 %) 1.2 Coagulation PT (9.4 - 12.5 SEC) 14.3 H INR (0.90 - 1.17) 1.37 H APTT (25 - 37 SEC) 32 D-Dimer (70 - 232 ng/ml) 997 H Cancelled Hematology CBC w Diff NO MAN DIFF REQ WBC (4.8 - 10.8 /CUMM) 12.3 H RBC (4.70 - 6.10 /CUMM) 4.51 L Hgb (14.0 - 18.0 G/DL) 9.8 L Hct (42 - 52 %) 32.0 L MCV (80.0 - 94.0 FL) 70.8 L MCH (27.0 - 31.0 PG) 21.8 L RDW (11.5 - 14.5 %) 17.6 H Plt Count (130 - 400 /CUMM) 497 H MPV (7.4 - 10.4 FL) 7.8 Gran % (42.2 - 75.2 %) 73.0 Lymphocytes % (20.5 - 51.1 %) 13.8 L Monocytes % (1.7 - 9.3 %) 11.2 H Eosinophils % (0 - 5 %) 1.3 Basophils % (0.0 - 2.0 %) 0.7 Absolute Granulocytes (1.4 - 6.5 /CUMM) 9.0 H Absolute Lymphocytes (1.2 - 3.4 /CUMM) 1.7 Absolute Monocytes (0.10 - 0.60 /CUMM) 1.4 H Absolute Eosinophils (0.0 - 0.7 /CUMM) 0.2 Absolute Basophils (0.0 - 0.2 /CUMM) 0.1 PUBS MCHC (33.0 - 37.0 G/DL) 30.8 L ESR Westergren (0 - 10 MM) 50 H Toxicology Urine Opiates Screen (>2000 NG/ML) < 100.00 Methadone Screen (>300 NG/ML) < 40 Barbiturate Screen (>200 NG/ML) < 60 Ur Phencyclidine Scrn (>25 NG/ML) < 6.00 Amphetamines Screen (>1000 NG/ML) < 100 U Benzodiazepines Scrn (>200 NG/ML) < 85 Urine Cocaine Screen (>300 NG/ML) < 50 Urine Cannabis Screen (>50 NG/ML) < 5.00 Last 24 Hours of Reji Results: No recent cultures Diagnostic Data Recent Imaging Findings: CTA of the chest negative for pulmonary emboli, but reveals a prominent pericardial effusion and small bilateral pleural effusions. Assessment/Plan Assessment/Plan Impression: This is a 25-year-old man with ulcerative colitis, treated with Humira, Mesalamine and, until 2 weeks prior to admission, steroids admitted on September 29 with a one week history of neck pain and left chest pain, worse with movement, associated with fevers, chills, anorexia and malaise, found to be afebrile with a mild leukocytosis and with a CT of the chest revealing a "prominent" pericardial effusion. His clinical picture is consistent with pericarditis. The etiology is unclear and could include his ulcerative colitis itself, particularly as his chest pain has occurred coincident with a recurrence of his GI symptoms with the discontinuation of his steroids 2 weeks prior to admission, or a viral process, with multiple viruses implicated in pericarditis, including enteroviruses, parvovirus, hepatitis viruses and HIV. Lyme disease can rarely cause a myopericarditis, though it usually causes conduction abnormalities, which are not present. A purulent pericarditis, typically due to a bacterial process, seems unlikely as he does not appear ill, has no fever and white blood cell count is minimally elevated. Suggestion: 1. Follow-up Lyme titer 2. Could send serum for acute viral titers 3. GI evaluation for consideration of resumption of steroids 4. Symptomatic treatment of his pericarditis, for example with Colchicine, per Cardiology 5. Continue to follow off antibiotics pending above Consult Acknowledgment - Thank you for your consult request.
--- NOTE | 2016-09-30 18:24 | ECHOCARDIOGRAM REPORT ---
RICHIE GODINEZ Age: 25 : 1990 Gender: M Exam Date: 09/30/2016 08:34 Exam Location: [address] Ht (in): 70 Wt (lb): 150 BSA: 1.83 BP: 120 / 76 Ordering Physician: DON WASHINGTON MD Referring Physician: DON WASHINGTON MD Technologist: Branden Valles [facility] Room Number: 189-2 Indications: Chest Pain Rhythm: Sinus Technical Quality: Good FINDINGS Left Ventricle Normal global left ventricular size, wall thickness, systolic function with no obvious regional wall motion abnormalities. Right Ventricle Normal right ventricular size and function. Right Atrium Normal right atrial size. Left Atrium Normal left atrial size. Mitral Valve Structurally normal mitral valve. Aortic Valve Structurally normal trileaflet aortic valve. Tricuspid Valve Structurally normal tricuspid valve. Physiologic tricuspid regurgitation. Pulmonic Valve Structurally normal pulmonic valve. Pericardium Moderate pericardial effusion. Great Vessels Normal size aortic root and proximal ascending aorta. CONCLUSIONS 1. There is no significant valvuar heart disease present. Minimal tricuspid insufficiency is noted. 2. A small to moderate sized pericardial effusion is present. The effusion is most prominent posteriorly. There is no evidence of hemodynamic compromise. 3. The left ventricular chamber size and systolic function are normal with no resting wall motion abnormalities. 4. The right heart structures appear normal. The RV systolic pressure could not be asessed on this examination. 5. No prior study is available for comparison. Jeane Roman M.D. (Electronically Signed) Final Date: 30 Sep 2016 18:24 MEASUREMENTS (Male / Female) Normal Values 2D ECHO LV Diastolic Diameter PLAX 4.5 cm 4.2 - 5.9 / 3.9 - 5.3 cm LV Systolic Diameter PLAX 2.6 cm 2.1 - 4.0 cm LV Fractional Shortening PLAX 42.2 % 25 - 46 % LV Ejection Fraction 2D Teich 73.4 % IVS Diastolic Thickness 1.2 cm LVPW Diastolic Thickness 1.1 cm LV Relative Wall Thickness 0.5 RV Internal Dim ED PLAX 2.9 cm 1.9 - 3.8 cm LVOT Diameter 2.6 cm Aortic Root Diameter 3.2 cm LA Systolic Diameter LX 2.6 cm 3.0 - 4.0 / 2.7 - 3.8 cm LA Volume 42.0 cm 18 - 58 / 22 - 52 cm Ascending Aorta Diameter 2.6 cm IVC Diameter Expiration 1.8 cm DOPPLER AV Peak Velocity 103.0 cm/s AV Peak Gradient 4.2 mmHg AV Mean Velocity 71.9 cm/s AV Mean Gradient 2.0 mmHg AV Velocity Time Integral 19.1 cm LVOT Peak Velocity 95.1 cm/s LVOT Peak Gradient 3.6 mmHg LVOT Mean Velocity 63.4 cm/s LVOT Mean Gradient 2.0 mmHg LVOT Velocity Time Integral 17.4 cm LVOT Stroke Volume 92.4 cm AV Area Cont Eq vti 4.8 cm AV Area Cont Eq pk 4.9 cm MV Peak Velocity 86.9 cm/s MV Peak Gradient 3.0 mmHg MV Mean Velocity 53.1 cm/s MV Mean Gradient 1.0 mmHg Mitral E Point Velocity 80.0 cm/s Mitral A Point Velocity 43.4 cm/s Mitral E to A Ratio 1.8 MV PHT Velocity 90.9 cm/s MV Deceleration Amador 417.0 cm/s MV Pressure Half Time 65.4 ms MV Area PHT 3.4 cm MV Deceleration Time 190.0 ms PV Peak Velocity 89.6 cm/s PV Peak Gradient 3.2 mmHg PV Mean Velocity 63.0 cm/s PV Mean Gradient 2.0 mmHg PV Velocity Time Integral 20.3 cm LV E' Lateral Velocity 11.6 cm/s Mitral E to LV E' Lateral Ratio 6.9 LV E' Septal Velocity 10.1 cm/s Mitral E to LV E' Septal Ratio 7.9
--- NOTE | 2016-09-30 19:04 | Cons- Cardiology ---
General Information and HPI Consulting Request Date of Consult: 09/30/16 Requested By: RUT SOMMER MD Reason for Consult: Pericarditis / pericardial effusion Source of Information: patient, family, old records History of Present Illness: This is a 25 yo male with PMH of UC on Humira every other Tuesday and Lialda 4.8 mg daily and was weaned off prednisone two weeks ago. He comes in for CC of worsening chest pain. Patient says that about a week ago his symptoms started with neck pain. Initially he thought it was musculoskeletal in origin but he also noted some fever at the same time. MAXIMUM TEMPERATURE 101 but patient states that his fever was a steady 100 throughout the week. Eventually, the neck pain radiated down and became a chest pain that can by localized with one finger. He describes the chest pain as a stabbing 6 out of 10 under his left pectoral. Today the pain started radiating to his back particularly with coughing. Patient states that the pain gets worse with exertion and changes in position. He states that if hephysically exerts himself he noticed the pain getting worse. He also states that if he sleeps on his left side the pain becomes 10 out of 10. Leaning forward and tripoding makes the pain worse. Patient took Tylenol, however he said it did not help the pain but it did improve his fevers. Patient went to see his PCP for evaluation of the pain. He had several labs drawn which were also sent to his shade maker Dr. Magallon. Patient spoke with Dr. Magallon on the phone and given his presentation he was advised to come to ED for further evaluation. Upon CT of the chest patient was found to have a pericardial effusion. Allergies/Medications Allergies: Coded Allergies: lactobacillus (Intermediate, ABD PAIN, DIARRHEA 03/06/16) Home Med List: Mesalamine (Lialda) 1.2 GRAM TABLET. 4 TAB PO DAILY UC (Reported) Pantoprazole Sodium (Protonix) 40 MG TABLET. 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 Age 53. MOTHER (50 y/o- [employer]). Age 50-60. PGM (& breast Ca). , Age 68; Cause: Bladder cancer. Psychosocial History Who Do You Live With? parent (M&F) Services at Home: None Primary Language: Occitan Smoking Status: Never Smoked ETOH Use: denies use Illicit Drug Use: denies illicit drug use Living Will? no Power of Residential Team Leader/HCP? no Functional Ability ADLs Independent: dressing, eating, toileting, bathing. Ambulation: independent IADLs Independent: shopping, housework, finances, food prep, telephone, transportation , medication admin. Exam & Diagnostic Data Vital Signs and I&O Vital Signs Date Time Temp Pulse Resp B/P B/P Pulse O2 O2 Flow FiO2 Mean Ox Delivery Rate 09/30 1629 99.4 95 16 102/63 97 Room Air 09/30 1139 Room Air Room Air 09/30 0838 99.0 84 15 102/58 99 Room Air 09/30 0000 Room Air 09/29 2248 99.2 96 18 120/76 96 Room Air 09/29 2227 97.5 103 18 118/65 97 Room Air Room Air 09/29 2212 96 Room Air Intake & Output 09/30 1600 09/30 0800 09/30 0000 09/29 1600 09/29 0800 09/29 0000 Intake Total 900 400 0 Output Total Balance 900 400 0 Intake, IV 0 Intake, Oral 900 400 0 Number 1 3 Bowel Movements Patient 150 lb 150 lb Weight Weight Reported by Patient Measurement Method Physical Exam: General Appearance Alert, Oriented X3, Cooperative, No Acute Distress Skin Normal HEENT Atraumatic, PERRLA, EOMI, Mucous Membr. moist/pink Neck Supple, No LAD, JVP normal Cardiovascular Regular Rate, Normal S1, Normal S2, No Murmurs, Rubs Lungs Normal Air Movement Abdomen Soft, No Tenderness Neurological Normal Speech, Strength at 5/5 X4 Ext, Normal Tone, Sensation Intact, Cranial Nerves 3-12 NL Extremities No Edema Labs/Reji Results: Laboratory Tests 09/30 09/30 09/29 1021 0804 2335 Chemistry Troponin I (<0.11 ng/ml) < 0.01 TSH (0.270 - 4.200 uIU/mL) 2.100 Free T4 (0.79 - 2.35 ng/dL) 1.51 Hematology CBC w Diff NO MAN DIFF REQ WBC (4.8 - 10.8 /CUMM) 12.2 H RBC (4.70 - 6.10 /CUMM) 4.19 L Hgb (14.0 - 18.0 G/DL) 9.1 L Hct (42 - 52 %) 29.6 L MCV (80.0 - 94.0 FL) 70.6 L MCH (27.0 - 31.0 PG) 21.8 L RDW (11.5 - 14.5 %) 17.7 H Plt Count (130 - 400 /CUMM) 429 H MPV (7.4 - 10.4 FL) 7.9 Gran % (42.2 - 75.2 %) 79.9 H Lymphocytes % (20.5 - 51.1 %) 8.5 L Monocytes % (1.7 - 9.3 %) 10.1 H Eosinophils % (0 - 5 %) 1.4 Basophils % (0.0 - 2.0 %) 0.1 Absolute Granulocytes (1.4 - 6.5 /CUMM) 9.8 H Absolute Lymphocytes (1.2 - 3.4 /CUMM) 1.0 L Absolute Monocytes (0.10 - 0.60 /CUMM) 1.2 H Absolute Eosinophils (0.0 - 0.7 /CUMM) 0.2 Absolute Basophils (0.0 - 0.2 /CUMM) 0 PUBS MCHC (33.0 - 37.0 G/DL) 30.9 L Serology Lyme Disease Antibody Pending 09/29 09/29 1720 1726 Chemistry Sodium (137 - 145 mmol/L) 134 L Potassium (3.5 - 5.1 mmol/L) 4.0 Chloride (98 - 107 mmol/L) 97 L Carbon Dioxide (22 - 30 mmol/L) 24 Anion Gap (5 - 16) 13 BUN (9 - 20 mg/dL) 8 L Creatinine (0.7 - 1.2 mg/dL) 0.9 Estimated GFR (>60 ml/min) > 60 BUN/Creatinine Ratio (7 - 25 %) 8.9 Glucose (65 - 99 mg/dL) 93 Calcium (8.4 - 10.2 mg/dL) 8.7 Total Bilirubin (0.2 - 1.3 mg/dL) 0.3 AST (17 - 59 U/L) 14 L ALT (21 - 72 U/L) 31 Alkaline Phosphatase (< 127 U/L) 42 Troponin I (<0.11 ng/ml) < 0.01 C-Reactive Prot, Quant (<1.0 mg/dL) > 9.0 H Total Protein (6.3 - 8.2 g/dL) 6.7 Albumin (3.5 - 5.0 g/dL) 3.7 Globulin (1.9 - 4.2 gm/dL) 3.0 Albumin/Globulin Ratio (1.1 - 2.2 %) 1.2 Coagulation PT (9.4 - 12.5 SEC) 14.3 H INR (0.90 - 1.17) 1.37 H APTT (25 - 37 SEC) 32 D-Dimer (70 - 232 ng/ml) 997 H Cancelled Hematology CBC w Diff NO MAN DIFF REQ WBC (4.8 - 10.8 /CUMM) 12.3 H RBC (4.70 - 6.10 /CUMM) 4.51 L Hgb (14.0 - 18.0 G/DL) 9.8 L Hct (42 - 52 %) 32.0 L MCV (80.0 - 94.0 FL) 70.8 L MCH (27.0 - 31.0 PG) 21.8 L RDW (11.5 - 14.5 %) 17.6 H Plt Count (130 - 400 /CUMM) 497 H MPV (7.4 - 10.4 FL) 7.8 Gran % (42.2 - 75.2 %) 73.0 Lymphocytes % (20.5 - 51.1 %) 13.8 L Monocytes % (1.7 - 9.3 %) 11.2 H Eosinophils % (0 - 5 %) 1.3 Basophils % (0.0 - 2.0 %) 0.7 Absolute Granulocytes (1.4 - 6.5 /CUMM) 9.0 H Absolute Lymphocytes (1.2 - 3.4 /CUMM) 1.7 Absolute Monocytes (0.10 - 0.60 /CUMM) 1.4 H Absolute Eosinophils (0.0 - 0.7 /CUMM) 0.2 Absolute Basophils (0.0 - 0.2 /CUMM) 0.1 PUBS MCHC (33.0 - 37.0 G/DL) 30.8 L ESR Westergren (0 - 10 MM) 50 H Toxicology Urine Opiates Screen (>2000 NG/ML) < 100.00 Methadone Screen (>300 NG/ML) < 40 Barbiturate Screen (>200 NG/ML) < 60 Ur Phencyclidine Scrn (>25 NG/ML) < 6.00 Amphetamines Screen (>1000 NG/ML) < 100 U Benzodiazepines Scrn (>200 NG/ML) < 85 Urine Cocaine Screen (>300 NG/ML) < 50 Urine Cannabis Screen (>50 NG/ML) < 5.00 Diagnostic Data EKG Results sinus tachycardia with non specific lateral STT changes. Other Results CT chest: IMPRESSION: 1. No central or segmental pulmonary embolism. 2. New prominent pericardial effusion. 3. Small bilateral pleural effusions with mild adjacent atelectasis. VTE: negative Assessment/Plan Assessment/Plan Assessment: 1. Chest pain 2. Pericarditis with moderate sized pericardial effusion and no evidence of tamponade. 3. History of ulcerative colitis Recommendations: - Keep on telemetry for now. - Await echocardiogram - GI input - COntinue pain control for now. - NO NSAIDS - Further discussion with GI about possible institution of colchicine - ID input pending - When stable the patient may be discharged for close outpatient monitoring and followup echo next week to reassess pericardial effusion. Consult Acknowledgment - Thank you for your consult request.
[2016-09-30 23:00] VITALS: BP 118/80
--- NOTE | 2016-10-01 07:15 | PN- Housestaff ---
See Addendum Subjective Follow-up For: 1.Pericardial effusion most likely 2/2 pericarditis 2.Ulcerative colitis Tele-Events Since Last Visit: Sinus rhythm, sinus tachycardia, heart rate 88-107, with no overnight events Subjective: Afebrile, saturating well on room air, and hemodynamically stable. Patient reported improvement of his chest pain with pain medication. Patient had 2 episodes of nonbloody vomiting. Patient denies fever, chills, abdominal pain, diarrhea, or shortness breath. Review of Systems Constitutional: Reports: see HPI. Objective Last 24 Hrs of Vital Signs/I&O Vital Signs Date Time Temp Pulse Resp B/P B/P Pulse O2 O2 Flow FiO2 Mean Ox Delivery Rate 10/01 0852 98.0 109 16 122/70 97 Room Air 09/30 2300 98.7 102 16 118/80 98 Room Air 09/30 1629 99.4 95 16 102/63 97 Room Air Intake & Output 10/01 1600 10/01 0800 10/01 0000 Intake Total 130 490 Output Total Balance 130 490 Intake, IV 10 10 Intake, Oral 120 480 Number 3 3 Bowel Movements Physical Exam General Appearance: Alert, Oriented X3, Cooperative, No Acute Distress HEENT: Atraumatic, PERRLA, EOMI, Mucous Membr. moist/pink Cardiovascular: Regular Rate, Normal S1, Normal S2, No Murmurs, ST Lungs: Clear to Auscultation, Normal Air Movement Abdomen: Normal Bowel Sounds, Soft, No Tenderness Neurological: Normal Speech Extremities: No Clubbing, No Cyanosis, No Edema Current Medications: Current Medications Sig/Melody Start time Last Medication Dose Route Stop Time Status Admin Acetaminophen 650 MG Q6P PRN 09/29 2245 AC PO Colchicine 600 MCG DAILY 09/30 1422 AC 10/01 PO 1003 Lactase 1 TAB AC 09/30 1200 AC 10/01 PO 0813 Mesalamine 1,600 MG TID 09/30 1000 10/01 PO 1003 Morphine Sulfate 2 MG Q4-6 PRN PRN 09/29 2245 AC 09/29 IV 2257 Ondansetron HCl 4 MG Q6P PRN 09/30 0315 AC 09/30 IV 2251 Oxycodone HCl 5 MG .STK-MED ONE 10/01 0113 DC PO 10/01 0114 Oxycodone HCl 5 MG .STK-MED ONE 09/30 1650 DC PO 09/30 1651 Oxycodone HCl 5 MG Q6P PRN 09/29 2245 AC 10/01 PO 0732 Patient Medication 1 ED .STK-MED ONE 09/30 1349 DC Teaching ED 09/30 1350 Last 24 Hrs of Lab/Reji Results Last 24 Hrs of Labs/Mics: Laboratory Tests 10/01/16 0624: Anion Gap 13, Estimated GFR > 60, BUN/Creatinine Ratio 6.7 L, CBC w Diff NO MAN DIFF REQ, RBC 4.42 L, MCV 71.6 L, MCH 22.2 L, RDW 17.8 H, MPV 8.1, Gran % 73.0, Lymphocytes % 12.6 L, Monocytes % 11.4 H, Eosinophils % 2.8, Basophils % 0.2, Absolute Granulocytes 8.2 H, Absolute Lymphocytes 1.4, Absolute Monocytes 1.3 H, Absolute Eosinophils 0.3, Absolute Basophils 0, PUBS MCHC 31.0 L Assessment/Plan Assessment: 25-year-old male PMH significant for ulcerative colitis comes in for chief complaint of chest pain. Further imaging showed moderate-sized pericardial effusion on CT chest. CT CHEST IMPRESSION: 1. No central or segmental pulmonary embolism. 2. New prominent pericardial effusion. 3. Small bilateral pleural effusions with mild adjacent atelectasis. Labs on admission: CBC shows: wbc 12.3, Hb 9.8, HCT 32.0, Plt 497, MCV 70.8 ESR 50, CRP> 9.0 INR 1.37, D-dimer 997, Na 134, EKG on admission EKG shows tachycardia with QTC [address] depressions in 2,3, aVF PLAN #Pericardial effusion most likely2/2 pericarditis: Pt presented c/o pleuritic chest pain that is also positional. CT chest shows new prominent pericardial effusion. Echocardiogram shows a small to moderate sized pericardial effusion is present with no signs of cardiac tymponad ACS was ruled out. TFT was WNL. Cardio and GI are on board. * Continue colchicine once daily * We will discuss with cardiology the need for repeating limited echocardiogram on Tuesday, to follow up pericardial effusion response to treatment * We repeat EKG today #UC: He follows w/ Dr. Magallon. Pt does endorse some recent flare up and intermittent bloody stool. He is due for change in regimen for 6-MP and Uceris. * Con't home regimen * GI is on board #Anemia: Likely 2/2 his UC and intermittent bloody bowel movements. * Monitor CBC #Elevated D-dimer: Negative CTA for PE. * NTD FULL CODE REGULAR DIET ALPS ppx Problem List: 1. Pericarditis Pain Ratin Pain Location: Left chest anteriorly Pain Goal: Remain pain free Pain Plan: See assessment and plan Tomorrow's Labs & Rationales: CBC to follow WBCs and H&H given the active pericarditis and GI bleed Consulting Request: Consulting Specialty: Gastroenterology
[2016-10-01 08:03] LABS: ABSOLUTE BASOPHIL COUNT 0 /CUMM (0.0-0.2); ABSOLUTE EOSINOPHIL COUNT 0.3 /CUMM (0.0-0.7); ABSOLUTE GRANULOCYTE CT 8.2 /CUMM (1.4-6.5); ABSOLUTE LYMPH COUNT 1.4 /CUMM (1.2-3.4); ABSOLUTE MONOCYTE COUNT 1.3 /CUMM (0.10-0.60); BASOPHIL % 0.2 % (0.0-2.0); EOSINOPHIL % 2.8 % (0-5); HEMATOCRIT 31.6 % (42-52); MEAN CORPUSCULAR HGB 22.2 PG (27.0-31.0); MEAN CORPUSCULAR VOLUME 71.6 FL (80.0-94.0); MEAN PLATELET VOLUME 8.1 FL (7.4-10.4); PLATELET COUNT 457 /CUMM (130-400); RBC DISTRIBUTION WIDTH 17.8 % (11.5-14.5); RED BLOOD CELL CT 4.42 /CUMM (4.70-6.10); WHITE BLOOD CELL COUNT 11.2 /CUMM (4.8-10.8)
[2016-10-01 08:52] VITALS: BP 122/70
--- NOTE | 2016-10-01 09:01 | PN- Student ---
Subjective Subjective: Patient was seen this morning laying in bed. Acute overnight report of difficulty sleeping, abdominal pain, vomiting (x2), and bloody stools (x2). The patient reports improved chest pain with Oxycodon. Objective Objective: Vital Signs Date Time Temp Pulse Resp B/P B/P Pulse O2 O2 Flow FiO2 Mean Ox Delivery Rate 10/01 0852 98.0 109 16 122/70 97 Room Air 09/30 2300 98.7 102 16 118/80 98 Room Air 09/30 1629 99.4 95 16 102/63 97 Room Air Intake & Output 10/01 1600 10/01 0800 10/01 0000 Intake Total 130 490 Output Total Balance 130 490 Intake, IV 10 10 Intake, Oral 120 480 Number 3 3 Bowel Movements Physical Exam General Appearance: Alert, Oriented X3, Cooperative, No Acute Distress HEENT: Atraumatic, PERRLA, EOMI, Mucous Membr. moist/pink Cardiovascular: Regular Rate, Normal S1, Normal S2, No Murmurs, ST Lungs: Clear to Auscultation, Normal Air Movement Abdomen: Normal Bowel Sounds, Soft, No Tenderness Neurological: Normal Speech Extremities: No Clubbing, No Cyanosis, No Edema Current Medications Sig/Melody Start time Last Medication Dose Route Stop Time Status Admin Acetaminophen 650 MG Q6P PRN 09/29 2244 AC PO Colchicine 600 MCG DAILY 09/30 1422 10/01 PO 1003 Dextrose/Sodium 1,000 ML Q10H 10/01 1215 AC 10/01 Chloride IV 1214 Lactase 1 TAB AC 09/30 1200 AC 10/01 PO 1214 Mesalamine 1,600 MG TID 09/30 1000 10/01 PO 1003 Morphine Sulfate 2 MG Q4-6 PRN PRN 09/29 2245 AC 09/29 IV 2257 Ondansetron HCl 4 MG Q6P PRN 09/30 0315 AC 09/30 IV 2251 Oxycodone HCl 5 MG .STK-MED ONE 10/01 0113 DC PO 10/01 0114 Oxycodone HCl 5 MG .STK-MED ONE 09/30 1650 DC PO 09/30 1651 Oxycodone HCl 5 MG Q6P PRN 09/29 2245 10/01 PO 0732 Laboratory Tests 10/01/16 0624: Anion Gap 13, Estimated GFR > 60, BUN/Creatinine Ratio 6.7 L, CBC w Diff NO MAN DIFF REQ, RBC 4.42 L, MCV 71.6 L, MCH 22.2 L, RDW 17.8 H, MPV 8.1, Gran % 73.0, Lymphocytes % 12.6 L, Monocytes % 11.4 H, Eosinophils % 2.8, Basophils % 0.2, Absolute Granulocytes 8.2 H, Absolute Lymphocytes 1.4, Absolute Monocytes 1.3 H, Absolute Eosinophils 0.3, Absolute Basophils 0, PUBS MCHC 31.0 L Assessment/Plan Assessment: Patient is a 25-year-old man with a past medical history significant for microcytic anemia and ulcerative colitis on daily Lialda and Humira (every other Tuesday) who presented to [facility] on 09/29/2016 complaining of worsening chest pain. He reports that the pain began a week ago at the back of his neck. Roughly 2-3 days following his neck pain, he began developping left- sided, localized chest pain below the left nipple. The pain is described as a 6 out of 10 stabbing pain that does not resolve with Tynelol. Coughing, burping, leaning too far forward, straining, walking, and deep inspirations worsen the pain and cause it to radiate to the back. Of particular note, the pain is described as a 10 out of 10 stabbing pain when laying on his left side. 1 - Pericardial Effusion 2 - Ulcerative Colitis 3 - Anemia 4 - Leukocytosis 5 - Elevated D-Dimer CT CHEST - 09/29/2016 IMPRESSION 1. No central or segmental pulmonary embolism. 2. New prominent pericardial effusion. 3. Small bilateral pleural effusions with mild adjacent atelectasis. 1. Pericardial effusion. Patient was admitted to [place] with worsening chest pain. He reports that the pain worsens and radiates to the back with certain activities such as coughing, burping, leaning too far forward, straining, walking, and deep inspirations. Chest CTA on 09/29/2016 showed new prominent pericardial effusion. There is concern for pericarditis given his recent fever, EKG changes, and positional chest pain. Etiology unknown. Possibly a side effect of his medications. No rubs were auscultated on cardiac exam. As per Cardiology consult, if the patient continues to do well over the next 24-36 hours, consider discharge with close outpatient monitoring and follow-up echocardiogram in one week. * Switch Colchicine 600 mcg daily PO to Prednisone 20 mg BIP PO * Discuss with Cardiology the need for a repeat Echocardiogram on Tuesday to monitor effect of treatment on pericardial effusion * Repeat EKG * Oxycodone * Negative Lyme Titer * Follow-up Echocardiogram * Thank you Infectious Disease Consult 2. Ulcerative Colitis. 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 Magallon. He reports a recent flare-up of his ulcerative colitis with intermittent bloody stools. He is due for a change in regimen to 6-Mecaptopurine and Uceris. * Mesalamine 1,600 mg TID PO * GI consult 3. Anemia. Likely due to his ulcerative colitis and intermittent bloody bowel movements. * Monitor CBC 4. Leukocytosis. Patient has persistent leukocytosis with a current WBC of 12.2. Unknown etiology. On his last visit to the hospital, he was found to have pyelonephritis and was appropriateley treated. Denies any urinary symptoms at this time. Was previously on prednisone and weaned off two weeks ago. * Monitor CBC * Monitor for constitutional symptoms such as fever, etc. 5. Elevated D-dimer. Chest CTA on 09/29/2016 found no evidence of pulmonary embolism. Possibly due to ulcerative colitis. ALPS Prophylaxis Regular Diet Full Code
--- NOTE | 2016-10-01 10:47 | PN- Infect Dx ---
Subjective Subjective: Afebrile. He had a bad night with vomiting and continued bloody stools. He has had some relief of his chest pain with pain medication. Objective Last 24 Hrs of Vital Signs/I&O Vital Signs Date Time Temp Pulse Resp B/P B/P Pulse O2 O2 Flow FiO2 Mean Ox Delivery Rate 10/01 0852 98.0 109 16 122/70 97 Room Air 09/30 2300 98.7 102 16 118/80 98 Room Air 09/30 1629 99.4 95 16 102/63 97 Room Air 09/30 1139 Room Air Room Air Intake & Output 10/01 1600 10/01 0800 10/01 0000 Intake Total 130 490 Output Total Balance 130 490 Intake, IV 10 10 Intake, Oral 120 480 Number 3 3 Bowel Movements Physical Exam Other Physical Findings: He appears comfortable in no acute distress Lungs are clear Heart regular rhythm with no murmur Abdomen is soft, nontender with positive bowel sounds Extremities no cyanosis, clubbing or edema Results Last 24 Hours of Lab Results: Laboratory Tests 10/01 0624 Chemistry Sodium (137 - 145 mmol/L) 135 L Potassium (3.5 - 5.1 mmol/L) 4.4 Chloride (98 - 107 mmol/L) 97 L Carbon Dioxide (22 - 30 mmol/L) 25 Anion Gap (5 - 16) 13 BUN (9 - 20 mg/dL) 6 L Creatinine (0.7 - 1.2 mg/dL) 0.9 Estimated GFR (>60 ml/min) > 60 BUN/Creatinine Ratio (7 - 25 %) 6.7 L Hematology CBC w Diff NO MAN DIFF REQ WBC (4.8 - 10.8 /CUMM) 11.2 H RBC (4.70 - 6.10 /CUMM) 4.42 L Hgb (14.0 - 18.0 G/DL) 9.8 L Hct (42 - 52 %) 31.6 L MCV (80.0 - 94.0 FL) 71.6 L MCH (27.0 - 31.0 PG) 22.2 L RDW (11.5 - 14.5 %) 17.8 H Plt Count (130 - 400 /CUMM) 457 H MPV (7.4 - 10.4 FL) 8.1 Gran % (42.2 - 75.2 %) 73.0 Lymphocytes % (20.5 - 51.1 %) 12.6 L Monocytes % (1.7 - 9.3 %) 11.4 H Eosinophils % (0 - 5 %) 2.8 Basophils % (0.0 - 2.0 %) 0.2 Absolute Granulocytes (1.4 - 6.5 /CUMM) 8.2 H Absolute Lymphocytes (1.2 - 3.4 /CUMM) 1.4 Absolute Monocytes (0.10 - 0.60 /CUMM) 1.3 H Absolute Eosinophils (0.0 - 0.7 /CUMM) 0.3 Absolute Basophils (0.0 - 0.2 /CUMM) 0 PUBS MCHC (33.0 - 37.0 G/DL) 31.0 L Lyme titer September 30 negative Last 24 Hours of Reji Results: No cultures obtained Recent Imaging Studies: Echocardiogram September 30 moderate pericardial effusion, with no evidence of hemodynamic compromise Assessment/Plan Impression: Presumed pericarditis, with etiology unclear. It may be viral in origin but, with the recurrence of GI symptoms, coinciding with the discontinuation of steroids, suggesting a flareup of his ulcerative colitis, suspect that the pericarditis may be directly related to his ulcerative colitis. His Lyme titer is negative, making this an unlikely etiology. Suggestion: 1. GI evaluation for consideration of resumption of steroids 2. Continue symptomatic treatment of his pericarditis per Cardiology 3. Continue to follow off antibiotics
--- NOTE | 2016-10-01 13:27 | PN- Cardiology ---
Subjective Subjective: The patient is doing fairly well today. He remains hemodynamically stable with no other new issues. He continues to have some subtle chest discomfort. He has also had episodes of nausea/vomiting. GI input pending. Objective Vital Signs and I&Os Vital Signs Date Time Temp Pulse Resp B/P B/P Pulse O2 O2 Flow FiO2 Mean Ox Delivery Rate 10/01 0852 98.0 109 16 122/70 97 Room Air 09/30 2300 98.7 102 16 118/80 98 Room Air 09/30 1629 99.4 95 16 102/63 97 Room Air Intake & Output 10/01 1600 10/01 0800 10/01 0000 09/30 1600 09/30 0800 09/30 0000 Intake Total 130 490 900 400 0 Output Total Balance 130 490 900 400 0 Intake, IV 10 10 0 Intake, Oral 120 480 900 400 0 Number 3 3 1 3 Bowel Movements Patient 150 lb 150 lb Weight Weight Reported by Patient Measurement Method Current Medications: Current Medications Sig/Melody Start time Last Medication Dose Route Stop Time Status Admin Acetaminophen 650 MG Q6P PRN 09/29 2245 AC PO Colchicine 600 MCG DAILY 09/30 1422 AC 10/01 PO 1003 Dextrose/Sodium 1,000 ML Q10H 10/01 1215 AC 10/01 Chloride IV 1214 Lactase 1 TAB AC 09/30 1200 AC 10/01 PO 1214 Mesalamine 1,600 MG TID 09/30 1000 AC 10/01 PO 1003 Morphine Sulfate 2 MG Q4-6 PRN PRN 09/29 2245 AC 09/29 IV 2257 Ondansetron HCl 4 MG Q6P PRN 09/30 0315 AC 09/30 IV 2251 Oxycodone HCl 5 MG .STK-MED ONE 10/01 0113 DC PO 10/01 0114 Oxycodone HCl 5 MG .STK-MED ONE 09/30 1650 DC PO 09/30 1651 Oxycodone HCl 5 MG Q6P PRN 09/29 2245 AC 10/01 PO 0732 Patient Medication 1 ED .STK-MED ONE 09/30 1349 DC Teaching ED 09/30 1350 Results Last 48 Hrs of Labs/Mics: Laboratory Tests 10/01/16 0624: Anion Gap 13, Estimated GFR > 60, BUN/Creatinine Ratio 6.7 L, CBC w Diff NO MAN DIFF REQ, RBC 4.42 L, MCV 71.6 L, MCH 22.2 L, RDW 17.8 H, MPV 8.1, Gran % 73.0, Lymphocytes % 12.6 L, Monocytes % 11.4 H, Eosinophils % 2.8, Basophils % 0.2, Absolute Granulocytes 8.2 H, Absolute Lymphocytes 1.4, Absolute Monocytes 1.3 H, Absolute Eosinophils 0.3, Absolute Basophils 0, PUBS MCHC 31.0 L 09/30/16 1021: Lyme Disease Antibody 0.48 09/30/16 0804: CBC w Diff NO MAN DIFF REQ, RBC 4.19 L, MCV 70.6 L, MCH 21.8 L, RDW 17.7 H, MPV 7.9, Gran % 79.9 H, Lymphocytes % 8.5 L, Monocytes % 10.1 H, Eosinophils % 1.4, Basophils % 0.1, Absolute Granulocytes 9.8 H, Absolute Lymphocytes 1.0 L, Absolute Monocytes 1.2 H, Absolute Eosinophils 0.2, Absolute Basophils 0, PUBS MCHC 30.9 L 09/29/16 2335: Troponin I < 0.01, TSH 2.100, Free T4 1.51 09/29/16 1728: Anion Gap 13, Estimated GFR > 60, BUN/Creatinine Ratio 8.9, Glucose 93, Calcium 8.7, Total Bilirubin 0.3, AST 14 L, ALT 31, Alkaline Phosphatase 42, Troponin I < 0.01, C-Reactive Prot, Quant > 9.0 H, Total Protein 6.7, Albumin 3.7, Globulin 3.0, Albumin/Globulin Ratio 1.2, PT 14.3 H, INR 1.37 H, APTT 32, D- Dimer 997 H, CBC w Diff NO MAN DIFF REQ, RBC 4.51 L, MCV 70.8 L, MCH 21.8 L, RDW 17.6 H, MPV 7.8, Gran % 73.0, Lymphocytes % 13.8 L, Monocytes % 11.2 H, Eosinophils % 1.3, Basophils % 0.7, Absolute Granulocytes 9.0 H, Absolute Lymphocytes 1.7, Absolute Monocytes 1.4 H, Absolute Eosinophils 0.2, Absolute Basophils 0.1, PUBS MCHC 30.8 L, ESR Westergren 50 H, Urine Opiates Screen < 100.00, Methadone Screen < 40, Barbiturate Screen < 60, Ur Phencyclidine Scrn < 6.00, Amphetamines Screen < 100, U Benzodiazepines Scrn < 85, Urine Cocaine Screen < 50, Urine Cannabis Screen < 5.00 09/29/16 1726: D-Dimer Cancelled Assessment/Plan Assessment/Plan Assessment: 1. Chest pain 2. Pericarditis with moderate sized pericardial effusion and no evidence of tamponade. 3. History of ulcerative colitis Recommendations: -Continue to monitor the patient on telemetry for now -Await further input from GI service -For now, the patient appears to be tolerating cultures seen. Await further discussions with GI with respect to continuing cultures seen or transitioning to oral steroids. -If the patient continues to do well over the next 24-36 hours, he may be stable for discharge at that time with close outpatient monitoring and follow-up echocardiogram in one week. -Further plans in 24 hours. Continue telemetry? Yes
--- NOTE | 2016-10-01 14:57 | Cons- Gastroenterology ---
General Information and HPI Consulting Request Date of Consult: 10/01/16 Requested By: RUT SOMMER MD Reason for Consult: Ulcerative colitis management in a pt admitted for a pericardial effusion. Rectal bleeding, diarrhea, nausea and vomiting. Source of Information: patient, old records Exam Limitations: no limitations History of Present Illness: Mr. Motta is a 25-year-old male with panulcerative colitis for which she is currently on Humira and 5-ASA agents after recently finishing a course of prednisone who presented to [facility] 2 days ago with reports of chest pain and he was ultimately admitted for a pericardial effusion appreciated on imaging. He finished a prednisone taper a few weeks ago, but he called the office the day of admission complaining of recurrent bloody diarrhea and a prescipion for uceris was called in, but he hasn't started that yet. In addition to complaining of bloody diarrhea he also noted some chest discomfort and shallow breathing which is when he was instructed to come into the ER out of concern for a possibe PE. He did not have a PE on a CTA, but he was found to have a pericardial effusion for which he was admitted to telemetry and for which he was ultimatley started on colchicine. His lialda was held as it was noted that in rare instances this can cause percardial effusions and he was started on colchicine for the pericardial effusion. He has also undergone a echocardiogram which didn't show any evidence of tamponade physiology. Since admission his chest discomfort has only minimally improved and last night he had some bilious vomiting and he also had some loose stool this morning with a scant amount of blood in it. He is without any significant abdominal pain and he has been hemodynamically stable and afebrile off of antibiotics since admission. Allergies/Medications Allergies: Coded Allergies: lactobacillus (Intermediate, ABD PAIN, DIARRHEA 03/06/16) Home Med List: Adalimumab (Humira Pen) 40 MG/0.8 ML PEN.IJ.KIT 1 SYR SC Q2W UC (Reported) Mesalamine (Lialda) 1.2 GRAM TABLET.DR 4 TAB PO DAILY UC (Reported) Pantoprazole Sodium (Protonix) 40 MG TABLET.DR 1 TAB PO DAILY STOMACH Current Medications: Current Medications Sig/Melody Start time Last Medication Dose Route Stop Time Status Admin Acetaminophen 650 MG Q6P PRN 09/29 2245 AC PO Colchicine 600 MCG DAILY 09/30 1422 AC 10/01 PO 1003 Dextrose/Sodium 1,000 ML Q10H 10/01 1215 10/01 Chloride IV 1214 Lactase 1 TAB AC 09/30 1200 AC 10/01 PO 1214 Mesalamine 1,600 MG TID 09/30 1000 AC 10/01 PO 1003 Morphine Sulfate 2 MG Q4-6 PRN PRN 09/29 2245 AC 09/29 IV 2257 Ondansetron HCl 4 MG Q6P PRN 09/30 0315 AC 09/30 IV 2251 Oxycodone HCl 5 MG .STK-MED ONE 10/01 0113 DC PO 10/01 0114 Oxycodone HCl 5 MG .STK-MED ONE 09/30 1650 DC PO 09/30 1651 Oxycodone HCl 5 MG Q6P PRN 09/29 2245 AC 10/01 PO 0732 Past History Travel History Traveled to [place] past 21 day No Medical History Blood Transfusion Hx: No Neurological: NONE EENT: NONE Cardiovascular: NONE Respiratory: NONE Gastrointestinal: ulcerative colitis Hepatic: NONE Renal: NONE Musculoskeletal: NONE Psychiatric: NONE Endocrine: NONE Blood Disorders: anemia (microcytic anemia just dxd) Cancer(s): NONE 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 Age 53. MOTHER (50 y/o- [employer]). Age 50-60. PGM (& breast Ca). , Age 68; Cause: Bladder cancer. Psychosocial History Who Do You Live With? parent (M&F) Services at Home: None Primary Language: Maltese Smoking Status: Never Smoked ETOH Use: denies use Illicit Drug Use: denies illicit drug use Living Will? no Power of Assembly Machine Feeder/HCP? no Functional Ability ADLs Independent: dressing, eating, toileting, bathing. Ambulation: independent IADLs Independent: shopping, housework, finances, food prep, telephone, transportation , medication admin. Review of Systems Review of Systems Constitutional: Denies: fever, malaise, weakness. EENTM: Denies: no symptoms. Cardiovascular: Reports: chest pain. Respiratory: Denies: cough, short of breath, sputum production. GI: Reports: see HPI. Genitourinary: Denies: no symptoms. Musculoskeletal: Denies: no symptoms. Skin: Denies: no symptoms. Neurological/Psychological: Denies: no symptoms. Hematologic/Endocrine: Denies: no symptoms. Immunologic/Allergic: Denies: no symptoms. All Other Systems: Reviewed and Negative Exam & Diagnostic Data Vital Signs and I&O Vital Signs Date Time Temp Pulse Resp B/P B/P Pulse O2 O2 Flow FiO2 Mean Ox Delivery Rate 10/01 0852 98.0 109 16 122/70 97 Room Air 09/30 2300 98.7 102 16 118/80 98 Room Air 09/30 1629 99.4 95 16 102/63 97 Room Air Intake & Output 10/01 1600 10/01 0400 09/30 1600 09/30 0400 09/29 0400 Intake Total 004 520 0298 0 Output Total Balance 110 916 9910 0 Intake, IV 10 10 0 Intake, Oral 679 047 2630 0 Number 3 3 4 Bowel Movements Patient 150 lb 150 lb Weight Weight Reported by Patient Measurement Method Physical Exam General Appearance: well developed/nourished, no apparent distress, alert, comfortable Head: atraumatic, normal appearance Eyes: Bilateral: normal appearance. Ears, Nose, Throat: normal pharynx, normal ENT inspection Neck: normal inspection, supple Respiratory: normal breath sounds, chest non-tender Cardiovascular: regular rate/rhythm Gastrointestinal: normal bowel sounds, soft, non-tender, no organomegaly Rectal: deferred Back: normal inspection, normal range of motion Extremities: normal inspection, normal range of motion Results Pertinent Lab Results: Laboratory Tests 10/01 09/30 0624 1021 Chemistry Sodium (137 - 145 mmol/L) 135 L Potassium (3.5 - 5.1 mmol/L) 4.4 Chloride (98 - 107 mmol/L) 97 L Carbon Dioxide (22 - 30 mmol/L) 25 Anion Gap (5 - 16) 13 BUN (9 - 20 mg/dL) 6 L Creatinine (0.7 - 1.2 mg/dL) 0.9 Estimated GFR (>60 ml/min) > 60 BUN/Creatinine Ratio (7 - 25 %) 6.7 L Hematology CBC w Diff NO MAN DIFF REQ WBC (4.8 - 10.8 /CUMM) 11.2 H RBC (4.70 - 6.10 /CUMM) 4.42 L Hgb (14.0 - 18.0 G/DL) 9.8 L Hct (42 - 52 %) 31.6 L MCV (80.0 - 94.0 FL) 71.6 L MCH (27.0 - 31.0 PG) 22.2 L RDW (11.5 - 14.5 %) 17.8 H Plt Count (130 - 400 /CUMM) 457 H MPV (7.4 - 10.4 FL) 8.1 Gran % (42.2 - 75.2 %) 73.0 Lymphocytes % (20.5 - 51.1 %) 12.6 L Monocytes % (1.7 - 9.3 %) 11.4 H Eosinophils % (0 - 5 %) 2.8 Basophils % (0.0 - 2.0 %) 0.2 Absolute Granulocytes (1.4 - 6.5 /CUMM) 8.2 H Absolute Lymphocytes (1.2 - 3.4 /CUMM) 1.4 Absolute Monocytes (0.10 - 0.60 /CUMM) 1.3 H Absolute Eosinophils (0.0 - 0.7 /CUMM) 0.3 Absolute Basophils (0.0 - 0.2 /CUMM) 0 PUBS MCHC (33.0 - 37.0 G/DL) 31.0 L Serology Lyme Disease Antibody (RATIO) 0.48 09/30 09/29 0804 2335 Chemistry Troponin I (<0.11 ng/ml) < 0.01 TSH (0.270 - 4.200 uIU/mL) 2.100 Free T4 (0.79 - 2.35 ng/dL) 1.51 Hematology CBC w Diff NO MAN DIFF REQ WBC (4.8 - 10.8 /CUMM) 12.2 H RBC (4.70 - 6.10 /CUMM) 4.19 L Hgb (14.0 - 18.0 G/DL) 9.1 L Hct (42 - 52 %) 29.6 L MCV (80.0 - 94.0 FL) 70.6 L MCH (27.0 - 31.0 PG) 21.8 L RDW (11.5 - 14.5 %) 17.7 H Plt Count (130 - 400 /CUMM) 429 H MPV (7.4 - 10.4 FL) 7.9 Gran % (42.2 - 75.2 %) 79.9 H Lymphocytes % (20.5 - 51.1 %) 8.5 L Monocytes % (1.7 - 9.3 %) 10.1 H Eosinophils % (0 - 5 %) 1.4 Basophils % (0.0 - 2.0 %) 0.1 Absolute Granulocytes (1.4 - 6.5 /CUMM) 9.8 H Absolute Lymphocytes (1.2 - 3.4 /CUMM) 1.0 L Absolute Monocytes (0.10 - 0.60 /CUMM) 1.2 H Absolute Eosinophils (0.0 - 0.7 /CUMM) 0.2 Absolute Basophils (0.0 - 0.2 /CUMM) 0 PUBS MCHC (33.0 - 37.0 G/DL) 30.9 L 09/29 09/29 1728 1726 Chemistry Sodium (137 - 145 mmol/L) 134 L Potassium (3.5 - 5.1 mmol/L) 4.0 Chloride (98 - 107 mmol/L) 97 L Carbon Dioxide (22 - 30 mmol/L) 24 Anion Gap (5 - 16) 13 BUN (9 - 20 mg/dL) 8 L Creatinine (0.7 - 1.2 mg/dL) 0.9 Estimated GFR (>60 ml/min) > 60 BUN/Creatinine Ratio (7 - 25 %) 8.9 Glucose (65 - 99 mg/dL) 93 Calcium (8.4 - 10.2 mg/dL) 8.7 Total Bilirubin (0.2 - 1.3 mg/dL) 0.3 AST (17 - 59 U/L) 14 L ALT (21 - 72 U/L) 31 Alkaline Phosphatase (< 127 U/L) 42 Troponin I (<0.11 ng/ml) < 0.01 C-Reactive Prot, Quant (<1.0 mg/dL) > 9.0 H Total Protein (6.3 - 8.2 g/dL) 6.7 Albumin (3.5 - 5.0 g/dL) 3.7 Globulin (1.9 - 4.2 gm/dL) 3.0 Albumin/Globulin Ratio (1.1 - 2.2 %) 1.2 Coagulation PT (9.4 - 12.5 SEC) 14.3 H INR (0.90 - 1.17) 1.37 H APTT (25 - 37 SEC) 32 D-Dimer (70 - 232 ng/ml) 997 H Cancelled Hematology CBC w Diff NO MAN DIFF REQ WBC (4.8 - 10.8 /CUMM) 12.3 H RBC (4.70 - 6.10 /CUMM) 4.51 L Hgb (14.0 - 18.0 G/DL) 9.8 L Hct (42 - 52 %) 32.0 L MCV (80.0 - 94.0 FL) 70.8 L MCH (27.0 - 31.0 PG) 21.8 L RDW (11.5 - 14.5 %) 17.6 H Plt Count (130 - 400 /CUMM) 497 H MPV (7.4 - 10.4 FL) 7.8 Gran % (42.2 - 75.2 %) 73.0 Lymphocytes % (20.5 - 51.1 %) 13.8 L Monocytes % (1.7 - 9.3 %) 11.2 H Eosinophils % (0 - 5 %) 1.3 Basophils % (0.0 - 2.0 %) 0.7 Absolute Granulocytes (1.4 - 6.5 /CUMM) 9.0 H Absolute Lymphocytes (1.2 - 3.4 /CUMM) 1.7 Absolute Monocytes (0.10 - 0.60 /CUMM) 1.4 H Absolute Eosinophils (0.0 - 0.7 /CUMM) 0.2 Absolute Basophils (0.0 - 0.2 /CUMM) 0.1 PUBS MCHC (33.0 - 37.0 G/DL) 30.8 L ESR Westergren (0 - 10 MM) 50 H Toxicology Urine Opiates Screen (>2000 NG/ML) < 100.00 Methadone Screen (>300 NG/ML) < 40 Barbiturate Screen (>200 NG/ML) < 60 Ur Phencyclidine Scrn (>25 NG/ML) < 6.00 Amphetamines Screen (>1000 NG/ML) < 100 U Benzodiazepines Scrn (>200 NG/ML) < 85 Urine Cocaine Screen (>300 NG/ML) < 50 Urine Cannabis Screen (>50 NG/ML) < 5.00 Imaging/Other Studies: SERVICE DATE: 09/29/16 EXAM TYPE: CAT - CTA CHEST-PULMONARY EMBOLISM EXAMINATION: CT ANGIOGRAM OF THE CHEST WITH AND WITHOUT CONTRAST (CT PULMONARY ANGIOGRAM FOR PE) CLINICAL INFORMATION: Shortness of breath and chest pain. Evaluate for a pulmonary embolus. COMPARISON: Multiple priors, most recent CT abdomen/pelvis dated 05/07/2016 and most recent chest radiographs dated 04/02/2016. TECHNIQUE: Prior to contrast administration, noncontrast localization images were obtained. Subsequently, multidetector volumetric imaging was performed from the thoracic inlet to below the diaphragms following the administration of 95 mL Optiray 350 intravenous contrast. No contrast reaction reported. Sagittal, coronal, and MIP oblique sagittal reformatted images were obtained on the CT workstation, uploaded to PACS, and reviewed. Total exam dose-length product 285.10 mGy-cm. FINDINGS: QUALITY OF STUDY/CONTRAST BOLUS: Satisfactory PULMONARY ARTERIES: No central or segmental pulmonary emboli. THORACIC AORTA: No aneurysm or dissection. LUNG: No focal consolidation, nodules or masses. PLEURA: There are small bilateral pleural effusions with mild adjacent atelectasis. There is no pneumothorax. MEDIASTINUM: There is a prominent pericardial effusion. The heart is not enlarged. No hilar or mediastinal lymphadenopathy. No evidence of septal bowing or right heart strain. CHEST WALL/AXILLA: No axillary or internal mammary lymphadenopathy. OSSEOUS STRUCTURES: No acute or suspicious osseous abnormality. UPPER ABDOMEN: Unremarkable. No reflux of contrast into the hepatic veins to suggest elevated right heart pressures. IMPRESSION: 1. No central or segmental pulmonary embolism. 2. New prominent pericardial effusion. 3. Small bilateral pleural effusions with mild adjacent atelectasis. VTE: negative 09/30 echocardiogram: CONCLUSIONS 1. There is no significant valvuar heart disease present. Minimal tricuspid insufficiency is noted. 2. A small to moderate sized pericardial effusion is present. The effusion is most prominent posteriorly. There is no evidence of hemodynamic compromise. 3. The left ventricular chamber size and systolic function are normal with no resting wall motion abnormalities. 4. The right heart structures appear normal. The RV systolic pressure could not be asessed on this examination. 5. No prior study is available for comparison. Assessment/Plan Assessment/Recommendations: Assessment: Mr. Motta is a 25-year-old male diagnosed last year with ulcerative colitis for which he is currently on Lialda and Humira after recently finishing a prednisone taper a few weeks ago who was admitted for a pericardial effusion of uncertain etiology, but the presumption is that it is viral. It is also possible the effusion could be secondary to meds such as the lialda which has pericarditis listed as a possible side effect, but this is rare. Considering his moderate to severe panulcerative colitis it is also possible the effusion may be autoimmune in etiology. He was started on colchicine last night for the pericardial effusion which has led to some minimal relief in his chest discomfort, but he has also been having some bloody diarrhea and also had some nausea and vomiting which he notes is consistent with his pror flares of ulcerative colitis so at this point I feel it would be reasonable to change back to oral prednisone to treat both the ulcerative colitis flare and the pericardial effusion. Recommendations: 1. If no objections from infectious disease would start prednisone 20 mg by mouth twice a day. 2. Advance diet as tolerated. 3. Administer antiemetics as needed. 4. Would start IV Pepcid 20 mg twice a day for GI prophylaxis considering the steroids he has been on in the past. 5. Would continue to hold Lialda and would also avoid giving the patient NSAIDs as this can also exacerbate his IBD. 6. If the patient is diarrhea which should be sent for culture, C. difficile, and O&P and would also recommend checking a baseline fecal calprotectin as a non -invasive way to follow his IBD activity. 7. Continued follow-up with ID and cardiology and 8. As there is still possibility the pericarditis as infectious would recommending holding his Humira injection which she is scheduled to get tomorrow. 9. If he is not able to tolerate in oral diet consideration will ultimately be given for a diagnostic upper endoscopy, but this is not urgent. I will continue to follow this patient and make further recommendations based on his clinical course and results of repeat imaging, blood and stool testing. Problem List: 1. Ulcerative colitis 2. Pericardial effusion 3. Pericarditis 4. Bloody diarrhea Copies To: JODY BOONE,JT Longo; MARLENI BOONE,H[place]; LEMUEL BOONE,Lois GORDILLO; ARABELLA BOONE, MARCOS Cowan Consult Acknowledgment - Thank you for your consult request.
[2016-10-01 15:30] VITALS: BP 112/68
--- NOTE | 2016-10-01 17:51 | Patient Discharge Instructions ---
Discharge Instructions General Discharge Information You were seen/treated for: Pericarditis Special Instructions: Please follow up with cardiology within 1 week Please follow-up with GI within 1 week. Please take medication as prescribed. Avoid taking any NSAIDs. Keep holding Humira injection for at least one week. It may be resumed if okay with your primary care doctor or GI doctor when you follow up. Please come back if symptom did not improve or get worse. Diet Continue normal diet: Yes Activity Full Activity/No Limits: Yes Activity Self Limited: Yes Acute Coronary Syndrome Inclusion Criteria At DC or during hospital stay patient has or had the following: ACS DIAGNOSIS No Discharge Core Measures Meds if any: Prescribed or Continued at Discharge Meds if any: NOT Prescribed or Continued at Discharge Congestive Heart Failure Inclusion Criteria At DC or during hospital stay patient has or had the following: CHF DIAGNOSIS No Discharge Core Measures Meds if any: Prescribed or Continued at Discharge Meds if any: NOT Prescribed or Continued at Discharge Cerebrovascular accident Inclusion Criteria At DC or during hospital stay patient has or had the following: CVA/TIA Diagnosis No Discharge Core Measures Meds if any: Prescribed or Continued at Discharge Meds if any: NOT Prescribed or Continued at Discharge Venous thromboembolism Inclusion Criteria VTE Diagnosis No VTE Type NONE VTE Confirmed by (Test) NONE Discharge Core Measures - Per Current guidelines, there needs to be overlap - treatment for the first 5 days of Warfarin therapy. - If discharged on Warfarin prior to 5 days of - overlap therapy, the patient will need to be - assessed for post discharge needs including - *Post discharge parental anticoagulation - *Warfarin and/or parental anticoagulation education - *Follow up date to check INR post discharge At least 5 days overlap therapy as Inpatient No Meds if any: Prescribed or Continued at Discharge Note: Overlap Therapy is Warfarin and Anticoagulant Meds if any: NOT Prescribed or Continued at Discharge
[2016-10-02 00:57] VITALS: BP 108/70
[2016-10-02 08:26] VITALS: BP 112/72
[2016-10-02 08:28] LABS: ABSOLUTE BASOPHIL COUNT 0 /CUMM (0.0-0.2); ABSOLUTE EOSINOPHIL COUNT 0.1 /CUMM (0.0-0.7); ABSOLUTE GRANULOCYTE CT 9.3 /CUMM (1.4-6.5); ABSOLUTE LYMPH COUNT 0.7 /CUMM (1.2-3.4); ABSOLUTE MONOCYTE COUNT 0.6 /CUMM (0.10-0.60); BASOPHIL % 0.1 % (0.0-2.0); EOSINOPHIL % 1.2 % (0-5); GRANULOCYTE % 86.6 % (42.2-75.2); HEMATOCRIT 29.3 % (42-52); MEAN CORPUSCULAR HGB 21.8 PG (27.0-31.0); MEAN CORPUSCULAR HGB CONC 30.6 G/DL (33.0-37.0); MEAN CORPUSCULAR VOLUME 71.3 FL (80.0-94.0); MEAN PLATELET VOLUME 7.9 FL (7.4-10.4); PLATELET COUNT 461 /CUMM (130-400); RBC DISTRIBUTION WIDTH 17.4 % (11.5-14.5); RED BLOOD CELL CT 4.11 /CUMM (4.70-6.10); WHITE BLOOD CELL COUNT 10.8 /CUMM (4.8-10.8)
--- NOTE | 2016-10-02 10:12 | PN- Housestaff ---
Subjective Follow-up For: Pericarditis Subjective: Patient is seen and examined bedside. Early in the morning he reported feeling better however during midday, he complained of some GI upsets and patient's mom was at bedside stated that the patient appears tired. No acute overnight event reported by nursing staff Review of Systems Constitutional: Reports: see HPI. Objective Last 24 Hrs of Vital Signs/I&O Vital Signs Date Time Temp Pulse Resp B/P B/P Pulse O2 O2 Flow FiO2 Mean Ox Delivery Rate 10/02 1638 102/54 10/02 1558 99.7 85 16 97/48 96 Room Air 10/02 0826 99.2 80 18 112/72 99 Room Air 10/02 0057 98.7 91 18 108/70 96 Room Air Intake & Output 10/02 1600 10/02 0800 10/02 0000 Intake Total 920 1170 Output Total 475 Balance 920 695 Intake, IV 800 810 Intake, Oral 120 360 Number 1 1 Bowel Movements Output, Urine 475 Patient 68.039 kg Weight Physical Exam General Appearance: Alert, Oriented X3, Cooperative Other Physical Findings: General Appearance: Alert, Oriented X3, Cooperative, No Acute Distress HEENT: Atraumatic, PERRLA, EOMI, Mucous Membr. moist/pink Cardiovascular: Regular Rate, Normal S1, Normal S2, No Murmurs, ST Lungs: Clear to Auscultation, Normal Air Movement Abdomen: Normal Bowel Sounds, Soft, No Tenderness Neurological: Normal Speech Extremities: No Clubbing, No Cyanosis, No Edema Current Medications: Current Medications Sig/Melody Start time Last Medication Dose Route Stop Time Status Admin Acetaminophen 650 MG Q6P PRN 09/29 2245 AC PO Dextrose/Sodium 1,000 ML Q10H 10/01 1215 10/02 Chloride IV 1655 Famotidine 20 MG BID 10/01 2200 AC 10/02 PO 0931 Lactase 1 TAB AC 09/30 1200 AC 10/02 PO 1542 Mesalamine 4.8 GM DAILY 10/03 1000 DC 10/02 PO 1543 Mesalamine 4.8 GM DAILY@1700 10/02 1700 AC PO Morphine Sulfate 2 MG Q4-6 PRN PRN 09/29 2245 AC 09/29 IV 2257 Ondansetron HCl 4 MG Q6P PRN 09/30 0315 AC 10/01 IV 1810 Oxycodone HCl 5 MG .STK-MED ONE 10/01 2213 DC PO 10/01 2214 Oxycodone HCl 5 MG Q6P PRN 09/29 2245 AC 10/02 PO 1053 Prednisone 20 MG BID 10/01 2199 AC 10/02 PO 0931 Last 24 Hrs of Lab/Reji Results Last 24 Hrs of Labs/Mics: Laboratory Tests 10/02/16626: CBC w Diff NO MAN DIFF REQ, RBC 4.11 L, MCV 71.3 L, MCH 21.8 L, RDW 17.4 H, MPV 7.9, Gran % 86.6 H, Lymphocytes % 6.1 L, Monocytes % 6.0, Eosinophils % 1.2, Basophils % 0.1, Absolute Granulocytes 9.3 H, Absolute Lymphocytes 0.7 L, Absolute Monocytes 0.6, Absolute Eosinophils 0.1, Absolute Basophils 0, PUBS MCHC 30.6 L Microbiology 10/01 2209 STOOL: Clostridium difficile Toxin A & B - RES 10/01 2209 STOOL: Stool Culture - RES Assessment/Plan Assessment: 25-year-old male H significant for ulcerative colitis comes in for chief complaint of chest pain. Further imaging showed moderate-sized pericardial effusion on CT chest. CT CHEST IMPRESSION: 1. No central or segmental pulmonary embolism. 2. New prominent pericardial effusion. 3. Small bilateral pleural effusions with mild adjacent atelectasis. Labs on admission: CBC shows: wbc 12.3, Hb 9.8, HCT 32.0, Plt 497, MCV 70.8 ESR 50, CRP> 9.0 INR 1.37, D-dimer 997, Na 134, EKG on admission EKG shows tachycardia with QTC [address] depressions in 2,3, aVF PLAN #Pericardial effusion most likely2/2 pericarditis: Pt presented c/o pleuritic chest pain that is also positional. CT chest shows new prominent pericardial effusion. Echocardiogram shows a small to moderate sized pericardial effusion is present with no signs of cardiac tymponad ACS was ruled out. TFT was WNL. Cardio and GI are on board. * Patient is currently on prednisone 20 mg twice a day as NSAIDs are contraindicated and was having significant GI upset with COLCHICINE. * Patient will require follow-up echo to evaluate the progression or resolution of the pericardial effusion, new to follow cardiology recommendations plan to do a follow-up echo on an outpatient basis. * Given patient's GI upset and some chest wall pain he is not stable for discharge today will reassess tomorrow morning #UC: He follows w/ Dr. Magallon. Pt does endorse some recent flare up and intermittent bloody stool. He is due for change in regimen for 6-MP and Uceris. * Con't home regimen * GI is on board #Anemia: Likely 2/2 his UC and intermittent bloody bowel movements. * Monitor CBC #Elevated D-dimer: Negative CTA for PE. * NTD FULL CODE REGULAR DIET ALPS ppx Problem List: 1. Pericarditis 2. Pericardial effusion Pain Ratin Pain Location: chest wall Pain Goal: Remain pain free Pain Plan: prednisone and APAP Tomorrow's Labs & Rationales: BEP Consulting Request: Consulting Specialty: Gastroenterology
[2016-10-02] MEDS ORDERED: PROTONIX40 M3 PO (12:10)
--- NOTE | 2016-10-02 13:53 | PN- Gastroenterology ---
Assessment/Plan Assessment/Recommendations: Assessment: Mr. Motta is a 25-year-old male with ulcerative colitis for which he is currently on humira who was admitted a few days ago for a pericardial effusion for which he was initially started on colchicine, but as he was showing signs of an ulcerative colitis flare with vomiting and bloody stool he was changed to oral prednisone last night to treat both the UC flare and the pericarditis. He is currenlty improving, but he continues to be symptomatic. In any case, as his rectal bleeding has improved I feel he can safely be discharged to home from a GI standpoint, but would defer to cardiology as to if he can be dischargd from a pericarditits standpoint. He is due for his humira today, but considering the pericarditis would recommend holding this today and if he continues to impove would then re-start it next weekend. Of note, as he is flaring in spite of humira it may be reasonable to add 6-MP to get him into remission (TPMT enzyme was normal on 03/24). Recommendations: 1. Continue prednisone 20mg daily and if he discharged home would prescribe a taper keeping him on this dose for 10 days and then decreasing by 10mg every 10 days. 2. Advance diet as tolerated. 3. Administer antiemetics as needed. 4. ok to d/c regular pepcid and use it as needed 5. Would continue to hold Lialda and would also avoid giving the patient NSAIDs as this can also exacerbate his IBD. 6. Follow up stool studies. 7. Continued follow-up with ID and cardiology 8. As there is still possibility the pericarditis as infectious would recommending holding his Humira injection today and plan to re-start in one week. I will continue to follow this patient and make further recommendations based on his clinical course and results of repeat blood work and cultures. If he is discharged home he should contact the office on Tuesday to arrange for follow up with Dr. Magallon. Problem List: 1. Colitis 2. Lower GI bleed 3. Bloody diarrhea 4. Iron deficiency anemia 5. Pericardial effusion 6. Pericarditis Subjective Subjective: Pt still with some chest discomfort, but he feels it is improving. He has not had any further vomiting or rectal bleeding, but his stool is still a bit loose/ semi-formed. He started prednisone last night and got his second dose this morning. Review of Systems Constitutional: Denies: fever, malaise, weakness, unexplained weight loss. EENTM: Denies: no symptoms. Cardiovascular: Reports: chest pain. Denies: orthopena, peripheral edema. Respiratory: Denies: cough, hemoptysis, short of breath. Gastrointestinal: Reports: see HPI. Musculoskeletal: Denies: joint pain, joint swelling. Skin: Denies: no symptoms. Objective Vital Signs and I&Os Vital Signs Date Time Temp Pulse Resp B/P B/P Pulse O2 O2 Flow FiO2 Mean Ox Delivery Rate 10/02 0826 99.2 80 18 112/72 99 Room Air 10/02 0057 98.7 91 18 108/70 96 Room Air 10/01 1530 99.8 106 16 112/68 95 Room Air Intake & Output 10/02 1600 10/02 0400 10/01 1600 10/01 0400 09/30 1600 09/30 0400 Intake Total 920 1170 071 091 5557 0 Output Total 475 Balance 920 695 351 269 2077 0 Intake, IV 800 810 110 10 0 Intake, Oral 120 360 908 262 3963 0 Number 1 1 5 3 4 Bowel Movements Output, Urine 475 Patient 150 lb 150 lb 150 lb Weight Weight Reported by Patient Measurement Method Physical Exam General Appearance: well developed/nourished, no apparent distress, comfortable Head: atraumatic, normal appearance Neck: normal inspection, supple Respiratory: normal breath sounds, chest non-tender, no respiratory distress Cardiovascular: regular rate/rhythm Abdomen: normal bowel sounds, soft, non-tender Extremities: normal inspection, no edema Neurologic/Psychiatric: no motor/sensory deficits, awake, alert, oriented x 3 Current Medications: Current Medications Sig/Melody Start time Last Medication Dose Route Stop Time Status Admin Acetaminophen 650 MG Q6P PRN 09/29 2245 AC PO Colchicine 600 MCG DAILY 09/30 1422 DC 10/01 PO 1003 Dextrose/Sodium 1,000 ML Q10H 10/01 1215 AC 10/02 Chloride IV 0805 Famotidine 20 MG BID 10/01 2200 AC 10/02 PO 0931 Lactase 1 TAB AC 09/30 1200 AC 10/02 PO 1139 Mesalamine 4.8 GM DAILY 10/03 1000 AC PO Mesalamine 1,600 MG TID 09/30 1000 DC 10/01 PO 1715 Morphine Sulfate 2 MG Q4-6 PRN PRN 09/29 2244 AC 09/29 IV 2257 Ondansetron HCl 4 MG .STK-MED ONE 10/01 1807 DC IM 10/01 180 Ondansetron HCl 4 MG Q6P PRN 09/30 0315 AC 10/01 IV 1810 Oxycodone HCl 5 MG .STK-MED ONE 10/01 2214 DC PO 10/01 221 Oxycodone HCl 5 MG .STK-MED ONE 10/01 1458 DC PO 10/01 1459 Oxycodone HCl 5 MG Q6P PRN 09/29 224 AC 10/02 PO 1053 Prednisone 20 MG BID 10/01 2200 AC 10/02 PO 0931 Results Pertinent Lab Results: Laboratory Tests 10/02 Hematology CBC w Diff NO MAN DIFF REQ WBC (4.8 - 10.8 /CUMM) 10.8 RBC (4.70 - 6.10 /CUMM) 4.11 L Hgb (14.0 - 18.0 G/DL) 9.0 L Hct (42 - 52 %) 29.3 L MCV (80.0 - 94.0 FL) 71.3 L MCH (27.0 - 31.0 PG) 21.8 L RDW (11.5 - 14.5 %) 17.4 H Plt Count (130 - 400 /CUMM) 461 H MPV (7.4 - 10.4 FL) 7.9 Gran % (42.2 - 75.2 %) 86.6 H Lymphocytes % (20.5 - 51.1 %) 6.1 L Monocytes % (1.7 - 9.3 %) 6.0 Eosinophils % (0 - 5 %) 1.2 Basophils % (0.0 - 2.0 %) 0.1 Absolute Granulocytes (1.4 - 6.5 /CUMM) 9.3 H Absolute Lymphocytes (1.2 - 3.4 /CUMM) 0.7 L Absolute Monocytes (0.10 - 0.60 /CUMM) 0.6 Absolute Eosinophils (0.0 - 0.7 /CUMM) 0.1 Absolute Basophils (0.0 - 0.2 /CUMM) 0 PUBS MCHC (33.0 - 37.0 G/DL) 30.6 L Other Body Source Stool Calprotectin Pending 05/26 05/25 0624 1021 Chemistry Sodium (137 - 145 mmol/L) 135 L Potassium (3.5 - 5.1 mmol/L) 4.4 Chloride (98 - 107 mmol/L) 97 L Carbon Dioxide (22 - 30 mmol/L) 25 Anion Gap (5 - 16) 13 BUN (9 - 20 mg/dL) 6 L Creatinine (0.7 - 1.2 mg/dL) 0.9 Estimated GFR (>60 ml/min) > 60 BUN/Creatinine Ratio (7 - 25 %) 6.7 L Hematology CBC w Diff NO MAN DIFF REQ WBC (4.8 - 10.8 /CUMM) 11.2 H RBC (4.70 - 6.10 /CUMM) 4.42 L Hgb (14.0 - 18.0 G/DL) 9.8 L Hct (42 - 52 %) 31.6 L MCV (80.0 - 94.0 FL) 71.6 L MCH (27.0 - 31.0 PG) 22.2 L RDW (11.5 - 14.5 %) 17.8 H Plt Count (130 - 400 /CUMM) 457 H MPV (7.4 - 10.4 FL) 8.1 Gran % (42.2 - 75.2 %) 73.0 Lymphocytes % (20.5 - 51.1 %) 12.6 L Monocytes % (1.7 - 9.3 %) 11.4 H Eosinophils % (0 - 5 %) 2.8 Basophils % (0.0 - 2.0 %) 0.2 Absolute Granulocytes (1.4 - 6.5 /CUMM) 8.2 H Absolute Lymphocytes (1.2 - 3.4 /CUMM) 1.4 Absolute Monocytes (0.10 - 0.60 /CUMM) 1.3 H Absolute Eosinophils (0.0 - 0.7 /CUMM) 0.3 Absolute Basophils (0.0 - 0.2 /CUMM) 0 PUBS MCHC (33.0 - 37.0 G/DL) 31.0 L Serology Lyme Disease Antibody (RATIO) 0.48 09/30 09/29 0804 2979 Chemistry Troponin I (<0.11 ng/ml) < 0.01 TSH (0.270 - 4.200 uIU/mL) 2.100 Free T4 (0.79 - 2.35 ng/dL) 1.51 Hematology CBC w Diff NO MAN DIFF REQ WBC (4.8 - 10.8 /CUMM) 12.2 H RBC (4.70 - 6.10 /CUMM) 4.19 L Hgb (14.0 - 18.0 G/DL) 9.1 L Hct (42 - 52 %) 29.6 L MCV (80.0 - 94.0 FL) 70.6 L MCH (27.0 - 31.0 PG) 21.8 L RDW (11.5 - 14.5 %) 17.7 H Plt Count (130 - 400 /CUMM) 429 H MPV (7.4 - 10.4 FL) 7.9 Gran % (42.2 - 75.2 %) 79.9 H Lymphocytes % (20.5 - 51.1 %) 8.5 L Monocytes % (1.7 - 9.3 %) 10.1 H Eosinophils % (0 - 5 %) 1.4 Basophils % (0.0 - 2.0 %) 0.1 Absolute Granulocytes (1.4 - 6.5 /CUMM) 9.8 H Absolute Lymphocytes (1.2 - 3.4 /CUMM) 1.0 L Absolute Monocytes (0.10 - 0.60 /CUMM) 1.2 H Absolute Eosinophils (0.0 - 0.7 /CUMM) 0.2 Absolute Basophils (0.0 - 0.2 /CUMM) 0 PUBS MCHC (33.0 - 37.0 G/DL) 30.9 L 09/29 09/29 1728 1726 Chemistry Sodium (137 - 145 mmol/L) 134 L Potassium (3.5 - 5.1 mmol/L) 4.0 Chloride (98 - 107 mmol/L) 97 L Carbon Dioxide (22 - 30 mmol/L) 24 Anion Gap (5 - 16) 13 BUN (9 - 20 mg/dL) 8 L Creatinine (0.7 - 1.2 mg/dL) 0.9 Estimated GFR (>60 ml/min) > 60 BUN/Creatinine Ratio (7 - 25 %) 8.9 Glucose (65 - 99 mg/dL) 93 Calcium (8.4 - 10.2 mg/dL) 8.7 Total Bilirubin (0.2 - 1.3 mg/dL) 0.3 AST (17 - 59 U/L) 14 L ALT (21 - 72 U/L) 31 Alkaline Phosphatase (< 127 U/L) 42 Troponin I (<0.11 ng/ml) < 0.01 C-Reactive Prot, Quant (<1.0 mg/dL) > 9.0 H Total Protein (6.3 - 8.2 g/dL) 6.7 Albumin (3.5 - 5.0 g/dL) 3.7 Globulin (1.9 - 4.2 gm/dL) 3.0 Albumin/Globulin Ratio (1.1 - 2.2 %) 1.2 Coagulation PT (9.4 - 12.5 SEC) 14.3 H INR (0.90 - 1.17) 1.37 H APTT (25 - 37 SEC) 32 D-Dimer (70 - 232 ng/ml) 997 H Cancelled Hematology CBC w Diff NO MAN DIFF REQ WBC (4.8 - 10.8 /CUMM) 12.3 H RBC (4.70 - 6.10 /CUMM) 4.51 L Hgb (14.0 - 18.0 G/DL) 9.8 L Hct (42 - 52 %) 32.0 L MCV (80.0 - 94.0 FL) 70.8 L MCH (27.0 - 31.0 PG) 21.8 L RDW (11.5 - 14.5 %) 17.6 H Plt Count (130 - 400 /CUMM) 497 H MPV (7.4 - 10.4 FL) 7.8 Gran % (42.2 - 75.2 %) 73.0 Lymphocytes % (20.5 - 51.1 %) 13.8 L Monocytes % (1.7 - 9.3 %) 11.2 H Eosinophils % (0 - 5 %) 1.3 Basophils % (0.0 - 2.0 %) 0.7 Absolute Granulocytes (1.4 - 6.5 /CUMM) 9.0 H Absolute Lymphocytes (1.2 - 3.4 /CUMM) 1.7 Absolute Monocytes (0.10 - 0.60 /CUMM) 1.4 H Absolute Eosinophils (0.0 - 0.7 /CUMM) 0.2 Absolute Basophils (0.0 - 0.2 /CUMM) 0.1 PUBS MCHC (33.0 - 37.0 G/DL) 30.8 L ESR Westergren (0 - 10 MM) 50 H Toxicology Urine Opiates Screen (>2000 NG/ML) < 100.00 Methadone Screen (>300 NG/ML) < 40 Barbiturate Screen (>200 NG/ML) < 60 Ur Phencyclidine Scrn (>25 NG/ML) < 6.00 Amphetamines Screen (>1000 NG/ML) < 100 U Benzodiazepines Scrn (>200 NG/ML) < 85 Urine Cocaine Screen (>300 NG/ML) < 50 Urine Cannabis Screen (>50 NG/ML) < 5.00
--- NOTE | 2016-10-02 14:17 | PN- Cardiology ---
Subjective Subjective: Clinically improved since institution of steroids. Minimal residual symptoms. GI status slightly better. Objective Vital Signs and I&Os Vital Signs Date Time Temp Pulse Resp B/P B/P Pulse O2 O2 Flow FiO2 Mean Ox Delivery Rate 10/02 825 99.2 80 18 112/72 99 Room Air 10/02 0057 98.7 91 18 108/70 96 Room Air 10/01 1530 99.8 106 16 112/68 95 Room Air Intake & Output 10/02 1600 10/02 0800 10/02 0000 10/01 1600 10/01 0800 10/01 0000 Intake Total 920 1170 580 130 490 Output Total 475 Balance 920 695 580 130 490 Intake, IV 800 810 100 10 10 Intake, Oral 120 360 480 120 480 Number 1 1 2 3 3 Bowel Movements Output, Urine 475 Patient 150 lb Weight Current Medications: Current Medications Sig/Melody Start time Last Medication Dose Route Stop Time Status Admin Acetaminophen 650 MG Q6P PRN 09/29 2245 AC PO Colchicine 600 MCG DAILY 09/30 1422 DC 10/01 PO 1003 Dextrose/Sodium 1,000 ML Q10H 10/01 1215 AC 10/02 Chloride IV 0805 Famotidine 20 MG BID 10/01 2200 AC 10/02 PO 0931 Lactase 1 TAB AC 09/30 1200 AC 10/02 PO 1139 Mesalamine 4.8 GM DAILY 10/03 1000 AC PO Mesalamine 1,600 MG TID 09/30 1000 DC 10/01 PO 1715 Morphine Sulfate 2 MG Q4-6 PRN PRN 09/29 2245 AC 09/29 IV 2257 Ondansetron HCl 4 MG .STK-MED ONE 10/01 1807 DC IM 10/01 1808 Ondansetron HCl 4 MG Q6P PRN 09/30 0315 10/01 IV 1810 Oxycodone HCl 5 MG .STK-MED ONE 10/01 2214 DC PO 10/01 2215 Oxycodone HCl 5 MG .STK-MED ONE 10/01 1458 DC PO 10/01 1459 Oxycodone HCl 5 MG Q6P PRN 09/29 2245 AC 10/02 PO 1053 Prednisone 20 MG BID 10/01 2200 10/02 PO 0931 Results Last 48 Hrs of Labs/Mics: Laboratory Tests 10/02/16626: CBC w Diff NO MAN DIFF REQ, RBC 4.11 L, MCV 71.3 L, MCH 21.8 L, RDW 17.4 H, MPV 7.9, Gran % 86.6 H, Lymphocytes % 6.1 L, Monocytes % 6.0, Eosinophils % 1.2, Basophils % 0.1, Absolute Granulocytes 9.3 H, Absolute Lymphocytes 0.7 L, Absolute Monocytes 0.6, Absolute Eosinophils 0.1, Absolute Basophils 0, PUBS MCHC 30.6 L 10/01/16 1810: Stool Calprotectin Pending 10/01/16 0624: Anion Gap 13, Estimated GFR > 60, BUN/Creatinine Ratio 6.7 L, CBC w Diff NO MAN DIFF REQ, RBC 4.42 L, MCV 71.6 L, MCH 22.2 L, RDW 17.8 H, MPV 8.1, Gran % 73.0, Lymphocytes % 12.6 L, Monocytes % 11.4 H, Eosinophils % 2.8, Basophils % 0.2, Absolute Granulocytes 8.2 H, Absolute Lymphocytes 1.4, Absolute Monocytes 1.3 H, Absolute Eosinophils 0.3, Absolute Basophils 0, PUBS MCHC 31.0 L Assessment/Plan Assessment/Plan Assessment: 1. Chest pain 2. Pericarditis with moderate sized pericardial effusion and no evidence of tamponade. 3. History of ulcerative colitis Recommendations: -From a cardiac standpoint, the patient is doing much better. Clinically he appears much more stable. Hemodynamically stable. If the patient continues to do well during the course of the day today, I would consider discharging the patient later today for close follow-up with me as an outpatient. -Continue steroids as per the GI service. -The patient is discharged later today, the patient should follow-up in my office later in the week for a follow-up echocardiogram to reassess the size of the pericardial effusion. -Further changes in the patient's medical management will depend upon the follow -up echocardiogram and the size of the pericardial effusion. -The patient will also need to follow-up closely with the GI service as an outpatient. Continue telemetry? No
[2016-10-02 15:58] VITALS: BP 97/48
[2016-10-02 16:38] VITALS: BP 102/54
--- NOTE | 2016-10-02 17:14 | PN- Att Addend ---
Attending MD Review Statement Attending Statement Attending MD Statement: examined this patient, discuss w/resident/PA/BACON STRINGER, agreed w/resident/PA/BACON STRINGER, discussed with family, reviewed EMR data (avail), discussed w/ nursing Attending Assessment/Plan: Laboratory Tests 10/02/16 0627: CBC w Diff NO MAN DIFF REQ, RBC 4.11 L, MCV 71.3 L, MCH 21.8 L, RDW 17.4 H, MPV 7.9, Gran % 86.6 H, Lymphocytes % 6.1 L, Monocytes % 6.0, Eosinophils % 1.2, Basophils % 0.1, Absolute Granulocytes 9.3 H, Absolute Lymphocytes 0.7 L, Absolute Monocytes 0.6, Absolute Eosinophils 0.1, Absolute Basophils 0, PUBS MCHC 30.6 L 10/01/16 1810: Stool Calprotectin Pending Vital Signs Date Time Temp Pulse Resp B/P B/P Pulse O2 O2 Flow FiO2 Mean Ox Delivery Rate 10/02 1638 102/54 10/02 1558 99.7 85 16 97/48 96 Room Air 10/02 0826 99.2 80 18 112/72 99 Room Air 10/02 0057 98.7 91 18 108/70 96 Room Air Patient seen and examined at bedside. Discussed with patient as well as patient 's family at bedside the care plan. Patient is a 25-year-old male with significant past medical history of ulcerative colitis that was diagnosed in March 2016. Patient continues to have loose bowel movements during this admission and is currently on prednisone and Lialda. Patient's workup of chest pain revealed [id number] size pericardial effusion without any hemodynamic compromise. Patient is being followed up by cardiology for that. If patient's diarrhea improves by tomorrow the plan will be to discharge him home tomorrow.
[2016-10-02 23:15] VITALS: BP 112/70
[2016-10-03 01:10] VITALS: BP 96/58
[2016-10-03 01:12] VITALS: BP 100/60
[2016-10-03 08:02] LABS: ABSOLUTE BASOPHIL COUNT 0 /CUMM (0.0-0.2); ABSOLUTE EOSINOPHIL COUNT 0 /CUMM (0.0-0.7); ABSOLUTE GRANULOCYTE CT 10.7 /CUMM (1.4-6.5); ABSOLUTE MONOCYTE COUNT 0.8 /CUMM (0.10-0.60); BASOPHIL % 0.2 % (0.0-2.0); EOSINOPHIL % 0.1 % (0-5); GRANULOCYTE % 85.1 % (42.2-75.2); HEMATOCRIT 27.3 % (42-52); MEAN CORPUSCULAR HGB 21.9 PG (27.0-31.0); MEAN CORPUSCULAR HGB CONC 30.7 G/DL (33.0-37.0); MEAN CORPUSCULAR VOLUME 71.4 FL (80.0-94.0); MEAN PLATELET VOLUME 7.9 FL (7.4-10.4); PLATELET COUNT 479 /CUMM (130-400); RBC DISTRIBUTION WIDTH 17.5 % (11.5-14.5); RED BLOOD CELL CT 3.82 /CUMM (4.70-6.10); WHITE BLOOD CELL COUNT 12.6 /CUMM (4.8-10.8)
[2016-10-03 08:26] VITALS: BP 112/70
--- NOTE | 2016-10-03 09:28 | PN- Housestaff ---
Subjective Follow-up For: Pericarditis Tele-Events Since Last Visit: SR, HR 53-92 Subjective: Patient seen and examined. Resting comfortably in bed with no complaints. Diarrhea is much improved. Stools now semi-formed and abdominal pain resolved. Denies any headache, chest discomfort, palpitations, dypsnea, lightheadedness, dizziness, abdominal pain, n/v/c/d.No events reported overnight. Review of Systems Constitutional: Reports: no symptoms, see HPI. Objective Last 24 Hrs of Vital Signs/I&O Vital Signs Date Time Temp Pulse Resp B/P B/P Pulse O2 O2 Flow FiO2 Mean Ox Delivery Rate 10/03 0826 98.1 63 16 112/70 99 Room Air 10/03 0112 100/60 10/03 0110 98.1 68 16 96/58 97 Room Air 10/02 2315 112/70 10/02 1638 102/54 10/02 1558 99.7 85 16 97/48 96 Room Air Intake & Output 10/03 1600 10/03 0800 10/03 0000 Intake Total 800 700 Output Total Balance 800 700 Intake, IV 800 300 Intake, Oral 400 Physical Exam General Appearance: Alert, Oriented X3, Cooperative, No Acute Distress Other Physical Findings: General Appearance: Alert, Oriented X3, Cooperative, No Acute Distress HEENT: Atraumatic, PERRLA, EOMI, Mucous Membr. moist/pink Cardiovascular: Regular Rate, Normal S1, Normal S2, No Murmurs, ST Lungs: Clear to Auscultation, Normal Air Movement Abdomen: Normal Bowel Sounds, Soft, No Tenderness Neurological: Normal Speech Extremities: No Clubbing, No Cyanosis, No Edema Current Medications: Current Medications Sig/Melody Start time Last Medication Dose Route Stop Time Status Admin Acetaminophen 650 MG Q6P PRN 09/29 2245 AC PO Dextrose/Sodium 1,000 ML Q10H 10/01 1215 DC 10/03 Chloride IV 0416 Famotidine 20 MG BID 10/01 2200 AC 10/03 PO 0843 Lactase 1 TAB AC 09/30 1200 AC 10/03 PO 1237 Mesalamine 4.8 GM DAILY 10/03 1000 DC 10/02 PO 1543 Mesalamine 4.8 GM DAILY@1700 10/02 1700 AC PO Morphine Sulfate 2 MG Q4-6 PRN PRN 09/29 2245 AC 09/29 IV 2257 Ondansetron HCl 4 MG Q6P PRN 09/30 0315 AC 10/01 IV 1810 Oxycodone HCl 5 MG Q6P PRN 09/29 2245 AC 10/02 PO 1053 Prednisone 20 MG BID 10/010 AC 10/03 PO 0843 Last 24 Hrs of Lab/Reji Results Last 24 Hrs of Labs/Mics: Laboratory Tests 10/03/16 0615: CBC w Diff NO MAN DIFF REQ, RBC 3.82 L, MCV 71.4 L, MCH 21.9 L, RDW 17.5 H, MPV 7.9, Gran % 85.1 H, Lymphocytes % 7.9 L, Monocytes % 6.7, Eosinophils % 0.1, Basophils % 0.2, Absolute Granulocytes 10.7 H, Absolute Lymphocytes 1.0 L , Absolute Monocytes 0.8 H, Absolute Eosinophils 0, Absolute Basophils 0, PUBS MCHC 30.7 L Assessment/Plan Assessment: 25-year-old male H significant for ulcerative colitis comes in for chief complaint of chest pain. Further imaging showed moderate-sized pericardial effusion on CT chest. #Pericardial effusion most likely2/2 pericarditis: Pt presented c/o pleuritic chest pain that is also positional. CT chest shows new prominent pericardial effusion. Echocardiogram shows a small to moderate sized pericardial effusion is present with no signs of cardiac tymponad ACS was ruled out. TFT was WNL. Cardio and GI are on board. * Prednisone 20 mg daily for 10 days and then 10mg daily for 10 days * NSAIDs are contraindicated and was having significant GI upset with COLCHICINE. * Patient will require follow-up echo to evaluate the progression or resolution of the pericardial effusion, new to follow cardiology recommendations plan to do a follow-up echo on an outpatient basis. * Given patient's GI upset and some chest wall pain he is not stable for discharge today will reassess tomorrow morning #UC: He follows w/ Dr. Magallon. Pt does endorse some recent flare up and intermittent bloody stool. He is due for change in regimen for 6-MP and Uceris. * Con't home regimen * GI is on board * Prednisone for pericarditis as above #Anemia: Likely 2/2 his UC and intermittent bloody bowel movements. * Monitor CBC #Elevated D-dimer: Negative CTA for PE. * NTD FULL CODE REGULAR DIET ALPS ppx Problem List: 1. Pericarditis Pain Ratin Pain Location: 0 Pain Goal: Remain pain free Pain Plan: Mild pathway Tomorrow's Labs & Rationales: None Consulting Request: Consulting Specialty: Gastroenterology
--- NOTE | 2016-10-03 09:47 | PN- Student ---
Subjective Subjective: Patient was seen and examined this morning. Laying in bed eating breakfast. No acute overnight events reported. Patient denies any other current complaint. Reports improvement in his chest pain and abdominal pain. He also reports semi- solid consistency in his last bowel movement this morning with no presence of gross blood. Objective Objective: Vital Signs Date Time Temp Pulse Resp B/P B/P Pulse O2 O2 Flow FiO2 Mean Ox Delivery Rate 10/03 0826 98.1 63 16 112/70 99 Room Air 10/03 0112 100/60 10/03 0110 98.1 68 16 96/58 97 Room Air 10/02 2315 112/70 10/02 1638 102/54 10/02 1558 99.7 85 16 97/48 96 Room Air Intake & Output 10/03 1600 10/03 0800 10/03 0000 Intake Total 800 700 Output Total Balance 800 700 Intake, IV 800 300 Intake, Oral 400 Physical Exam General Appearance: Alert, Oriented X3, Cooperative, No Acute Distress HEENT: Atraumatic, PERRLA, EOMI, Mucous Membr. moist/pink Cardiovascular: Regular Rate, Normal S1, Normal S2, No Murmurs Lungs: Clear to Auscultation, Normal Air Movement Abdomen: Normal Bowel Sounds, Soft, No Tenderness Extremities: No Clubbing, No Cyanosis, No Edema Current Medications Sig/Melody Start time Last Medication Dose Route Stop Time Status Admin Acetaminophen 650 MG Q6P PRN 09/29 2244 PO Dextrose/Sodium 1,000 ML Q10H 10/01 1215 CA 10/03 Chloride IV 0416 Famotidine 20 MG BID 10/01 2200 10/03 PO 0843 Lactase 1 TAB AC 09/30 1200 AC 10/03 PO 0844 Mesalamine 4.8 GM DAILY 10/03 1000 DC 10/02 PO 1543 Mesalamine 4.8 GM DAILY@1700 10/02 1700 AC PO Morphine Sulfate 2 MG Q4-6 PRN PRN 09/29 2245 AC 09/29 IV 2257 Ondansetron HCl 4 MG Q6P PRN 09/30 0315 10/01 IV 1810 Oxycodone HCl 5 MG .STK-MED ONE 10/02 1041 DC PO 10/02 1042 Oxycodone HCl 5 MG Q6P PRN 09/29 2245 AC 10/02 PO 1053 Prednisone 20 MG BID 10/01 2200 AC 10/03 PO 0843 Laboratory Tests 10/03/16 0615: CBC w Diff NO MAN DIFF REQ, RBC 3.82 L, MCV 71.4 L, MCH 21.9 L, RDW 17.5 H, MPV 7.9, Gran % 85.1 H, Lymphocytes % 7.9 L, Monocytes % 6.7, Eosinophils % 0.1, Basophils % 0.2, Absolute Granulocytes 10.7 H, Absolute Lymphocytes 1.0 L , Absolute Monocytes 0.8 H, Absolute Eosinophils 0, Absolute Basophils 0, PUBS MCHC 30.7 L Assessment/Plan Assessment: Patient is a 25-year-old man with a past medical history significant for microcytic anemia and ulcerative colitis on daily Lialda and Humira (every other Tuesday) who presented to [facility] on 09/29/2016 complaining of worsening chest pain. He reported that the pain began a week prior to admission at the back of his neck. Roughly 2-3 days following his neck pain, he began developping left-sided, localized chest pain below the left nipple. The pain was described as a 6 out of 10 stabbing pain that did not resolve with Tynelol. Coughing, burping, leaning too far forward, straining, walking, and deep inspirations worsened the pain and caused it to radiate to the back. Of particular note, the pain was described as a 10 out of 10 stabbing pain when laying on his left side. Much of his symptoms have improved since admission. 1 - Pericardial Effusion 2 - Ulcerative Colitis 3 - Anemia 4 - Leukocytosis 5 - Elevated D-Dimer CT CHEST - 09/29/2016 IMPRESSION 1. No central or segmental pulmonary embolism. 2. New prominent pericardial effusion. 3. Small bilateral pleural effusions with mild adjacent atelectasis. 1. Pericardial effusion. Patient was admitted to [facility] for worsening chest pain. He reported that the pain worsened and radiated to his back with certain activities such as coughing, burping, leaning too far forward, straining, walking, and deep inspirations. Much of his symptoms have improved since admission. Chest CTA on 09/29/2016 showed a new prominent pericardial effusion. Likely pericarditis with viral etiology. No rubs were auscultated on cardiac exam. As per Cardiology progress, patient should continue steroids as per GI service, and follow-up with Dr. Roman as an outpatient on discharge. * Prednisone 20 mg * Follow-up Echocardiogram as outpatient to reassess size of the pericardial effusion * Thank you Infectious Disease Consult * Thank you Cardiology Consult 2. Ulcerative Colitis. Patient reported a recent flare-up of his ulcerative colitis with intermittent bloody stools on admission. Stool culture on 2016 was negative for Salmonella, Shigella, Campylobacter, and C. Difficile. Shiga toxin 1 & 2 are still pending. As per GI progress, patient should continue Prednisone 20 mg daily and taper at this dose for 9 days, and decrease by 10 mg every other 10 days. Probable discharge today if patient's abdominal pain and diarrhea improve. If discharged, patient is advised to contact the office on Tuesday and arrange for a follow-up with Dr. Magallon. * Prednisone 20 mg * D/C Pepcid and use as PRN * Continue to hold Lialda and avoid NSAIDS as per GI consult * Hold humira and re-start in one week as per GI consult * Follow-up stool studies * Thank you GI consult 3. Anemia. Likely due to his ulcerative colitis and intermittent bloody bowel movements. * Monitor CBC 4. Leukocytosis. Patient had a persistent leukocytosis with a WBC of 12.3 on admission. On his last visit to the hospital, he was found to have pyelonephritis and was appropriateley treated. Denies any urinary symptoms at this time. Patient was put back on Prednisone 20 mg BID which could explain his elevated WBC of 12.6 on 10/03/2016. 5. Elevated D-dimer. Chest CTA on 09/29/2016 found no evidence of pulmonary embolism. Possibly due to ulcerative colitis.
[2016-10-03] MEDS ORDERED: PREDNISONE10 M2 PO ×2 (11:45→11:46)
--- NOTE | 2016-10-03 13:25 | PN- Att Addend ---
Attending MD Review Statement Attending Statement Attending MD Statement: examined this patient, discuss w/resident/PA/PLUMBER, agreed w/resident/PA/PLUMBER, discussed with family, reviewed EMR data (avail), discussed w/ nursing Attending Assessment/Plan: Laboratory Tests 10/03/16 0615: CBC w Diff NO MAN DIFF REQ, RBC 3.82 L, MCV 71.4 L, MCH 21.9 L, RDW 17.5 H, MPV 7.9, Gran % 85.1 H, Lymphocytes % 7.9 L, Monocytes % 6.7, Eosinophils % 0.1, Basophils % 0.2, Absolute Granulocytes 10.7 H, Absolute Lymphocytes 1.0 L , Absolute Monocytes 0.8 H, Absolute Eosinophils 0, Absolute Basophils 0, PUBS MCHC 30.7 L Vital Signs Date Time Temp Pulse Resp B/P B/P Pulse O2 O2 Flow FiO2 Mean Ox Delivery Rate 10/03 0826 98.1 63 16 112/70 99 Room Air 10/03 0112 100/60 10/03 0110 98.1 68 16 96/58 97 Room Air 10/02 2315 112/70 10/02 1638 102/54 10/02 1558 99.7 85 16 97/48 96 Room Air Patient seen and examined at bedside. Discussed with patient as well as patient 's family at bedside the care plan. Patient is a 25-year-old male with significant past medical history of ulcerative colitis that was diagnosed in March 2016. Patient diarrhea has improved today and abdominal pain is better today. Patient currently on prednisone and Lialda. Patient's workup of chest pain revealed [id number] size pericardial effusion without any hemodynamic compromise. Patient is being followed up by cardiology for that. We'll DC her home today on by mouth prednisone 20 mg daily for 10 days and then taper to 10 mg daily for 10 days and then follow up with GI for further recommendations.
--- NOTE | 2016-10-03 13:46 | PN- Cardiology ---
Subjective Subjective: The patient is doing much better today. He denies any residual cardiac symptoms. Still with some GI issues. Objective Vital Signs and I&Os Vital Signs Date Time Temp Pulse Resp B/P B/P Pulse O2 O2 Flow FiO2 Mean Ox Delivery Rate 10/03 08 98.1 63 16 112/70 99 Room Air 10/03 0112 100/60 10/03 0110 98.1 68 16 96/58 97 Room Air 10/02 2315 112/70 10/02 1638 102/54 10/02 1558 99.7 85 16 97/48 96 Room Air Intake & Output 10/03 1600 10/03 0800 10/03 0000 10/02 1600 10/02 0800 10/02 0000 Intake Total 800 941 143 8148 Output Total 475 Balance 800 700 920 695 Intake, IV 800 300 800 810 Intake, Oral 400 120 360 Number 1 1 Bowel Movements Output, Urine 475 Patient 150 lb Weight Physical Exam: General Appearance Alert, Oriented X3, Cooperative, No Acute Distress Skin Normal HEENT Atraumatic, PERRLA, EOMI, Mucous Membr. moist/pink Neck Supple, No LAD, JVP normal Cardiovascular Regular Rate, Normal S1, Normal S2, No Murmurs, Rubs Lungs Normal Air Movement Abdomen Soft, No Tenderness Neurological Normal Speech, Strength at 5/5 X4 Ext, Normal Tone, Sensation Intact, Cranial Nerves 3-12 NL Extremities No Edema Current Medications: Current Medications Sig/Melody Start time Last Medication Dose Route Stop Time Status Admin Acetaminophen 650 MG Q6P PRN 09/29 2244 AC PO Dextrose/Sodium 1,000 ML Q10H 10/01 1215 DC 10/03 Chloride IV 0416 Famotidine 20 MG BID 10/01 220 AC 10/03 PO 0843 Lactase 1 TAB AC 09/30 1200 AC 10/03 PO 1237 Mesalamine 4.8 GM DAILY 10/03 1000 DC 10/02 PO 1543 Mesalamine 4.8 GM DAILY@1700 10/02 170 AC PO Morphine Sulfate 2 MG Q4-6 PRN PRN 09/29 2244 AC 09/29 IV 2257 Ondansetron HCl 4 MG Q6P PRN 09/30 0315 AC 10/01 IV 1810 Oxycodone HCl 5 MG Q6P PRN 09/29 2244 AC 10/02 PO 1053 Prednisone 20 MG BID 10/01 2199 AC 10/03 PO 0843 Results Last 48 Hrs of Labs/Mics: Laboratory Tests 10/03/16 0615: CBC w Diff NO MAN DIFF REQ, RBC 3.82 L, MCV 71.4 L, MCH 21.9 L, RDW 17.5 H, MPV 7.9, Gran % 85.1 H, Lymphocytes % 7.9 L, Monocytes % 6.7, Eosinophils % 0.1, Basophils % 0.2, Absolute Granulocytes 10.7 H, Absolute Lymphocytes 1.0 L , Absolute Monocytes 0.8 H, Absolute Eosinophils 0, Absolute Basophils 0, PUBS MCHC 30.7 L 10/02/16 0627: CBC w Diff NO MAN DIFF REQ, RBC 4.11 L, MCV 71.3 L, MCH 21.8 L, RDW 17.4 H, MPV 7.9, Gran % 86.6 H, Lymphocytes % 6.1 L, Monocytes % 6.0, Eosinophils % 1.2, Basophils % 0.1, Absolute Granulocytes 9.3 H, Absolute Lymphocytes 0.7 L, Absolute Monocytes 0.6, Absolute Eosinophils 0.1, Absolute Basophils 0, PUBS MCHC 30.6 L 10/01/16 1810: Stool Calprotectin Pending Assessment/Plan Assessment/Plan Assessment: 1. Chest pain 2. Pericarditis with moderate sized pericardial effusion and no evidence of tamponade. 3. History of ulcerative colitis Recommendations: -From a cardiac standpoint, the patient is doing much better. Clinically he appears much more stable. Hemodynamically stable. Discharge home today -Continue steroids as per the GI service. -The patient will follow-up in my office a week from Tuesday and have a follow- up echocardiogram at that time to reassess the size of the pericardial effusion -Further changes in the patient's medical management will depend upon the follow -up echocardiogram and the size of the pericardial effusion. -The patient will also need to follow-up closely with the GI service as an outpatient. Continue telemetry? No
--- NOTE | 2016-10-04 00:48 | Discharge Summary ---
Visit Information Visit Dates Admission Date: 09/30/16 Discharge Date: 10/03/16 Hospital Course Course Attending Physician: RUT SOMMER MD Primary Care Physician: MARLENI BOONE,[place] Consulting Request: Consulting Specialty: Gastroenterology Hospital Course: 25-year-old male PMH significant for ulcerative colitis comes in for chief complaint of chest pain. Further imaging showed moderate-sized pericardial effusion on CT chest. #Pericardial effusion most likely2/2 pericarditis: Pt presented c/o pleuritic chest pain that is also positional. CT chest shows new prominent pericardial effusion. Echocardiogram shows a small to moderate sized pericardial effusion is present with no signs of cardiac tymponad ACS was ruled out. TFT was WNL. Cardio and GI were consulted. treated with Prednisone 20 mg daily for 10 days and then 10mg daily for 10 days. Patient will require follow-up echo to evaluate the progression or resolution of the pericardial effusion, new to follow cardiology recommendations plan to do a follow-up echo on an outpatient basis. #UC: He follows w/ Dr. Magallon. Pt does endorse some recent flare up and intermittent bloody stool. He is due for change in regimen for 6-MP and Uceris. He was treated with prednisone for pericarditis as above #Anemia: Likely 2/2 his UC and intermittent bloody bowel movements. Had stable CBC #Elevated D-dimer: Negative CTA for PE. Allergies: Coded Allergies: lactobacillus (Intermediate, ABD PAIN, DIARRHEA 03/06/16) Pertinent Lab Results: SERVICE DATE: 09/29/16 EXAM TYPE: CAT - CTA CHEST-PULMONARY EMBOLISM EXAMINATION: CT ANGIOGRAM OF THE CHEST WITH AND WITHOUT CONTRAST (CT PULMONARY ANGIOGRAM FOR PE) CLINICAL INFORMATION: Shortness of breath and chest pain. Evaluate for a pulmonary embolus. COMPARISON: Multiple priors, most recent CT abdomen/pelvis dated 05/07/2016 and most recent chest radiographs dated 04/02/2016. TECHNIQUE: Prior to contrast administration, noncontrast localization images were obtained. Subsequently, multidetector volumetric imaging was performed from the thoracic inlet to below the diaphragms following the administration of 95 mL Optiray 350 intravenous contrast. No contrast reaction reported. Sagittal, coronal, and MIP oblique sagittal reformatted images were obtained on the CT workstation, uploaded to PACS, and reviewed. Total exam dose-length product 285.10 mGy-cm. FINDINGS: QUALITY OF STUDY/CONTRAST BOLUS: Satisfactory PULMONARY ARTERIES: No central or segmental pulmonary emboli. THORACIC AORTA: No aneurysm or dissection. LUNG: No focal consolidation, nodules or masses. PLEURA: There are small bilateral pleural effusions with mild adjacent atelectasis. There is no pneumothorax. MEDIASTINUM: There is a prominent pericardial effusion. The heart is not enlarged. No hilar or mediastinal lymphadenopathy. No evidence of septal bowing or right heart strain. CHEST WALL/AXILLA: No axillary or internal mammary lymphadenopathy. OSSEOUS STRUCTURES: No acute or suspicious osseous abnormality. UPPER ABDOMEN: Unremarkable. No reflux of contrast into the hepatic veins to suggest elevated right heart pressures. IMPRESSION: 1. No central or segmental pulmonary embolism. 2. New prominent pericardial effusion. 3. Small bilateral pleural effusions with mild adjacent atelectasis. VTE: negative These findings were discussed with Selin Parada via telephone at 6:59 PM on 09/29/2016. DICTATED BY: DAYDAY PATEL MD DATE/TIME DICTATED:09/29/161844 PHOTOVOLTAIC PANEL INSTALLER:ALMA DATE/TIME TRANSCRIBED:09/29/161844 CONFIDENTIAL, DO NOT COPY WITHOUT APPROPRIATE AUTHORIZATION. SERVICE DATE: 09/30/16- EXAM TYPE: CARD - ECHOCARDIOGRAM RICHIE GODINEZ Age: 25 : 1990 Gender: M Exam Date: 09/30/2016 08:34 Exam Location: [place] Ht (in): 70 Wt (lb): 150 BSA: 1.83 BP: 120 / 76 Ordering Physician: DON WASHINGTON MD Referring Physician: DON WASHINGTON MD Technologist: Branden Valles [facility] Room Number: 189-2 Indications: Chest Pain Rhythm: Sinus Technical Quality: Good FINDINGS Left Ventricle Normal global left ventricular size, wall thickness, systolic function with no obvious regional wall motion abnormalities. Right Ventricle Normal right ventricular size and function. Right Atrium Normal right atrial size. Left Atrium Normal left atrial size. Mitral Valve Structurally normal mitral valve. Aortic Valve Structurally normal trileaflet aortic valve. Tricuspid Valve Structurally normal tricuspid valve. Physiologic tricuspid regurgitation. Pulmonic Valve Structurally normal pulmonic valve. Pericardium Moderate pericardial effusion. Great Vessels Normal size aortic root and proximal ascending aorta. CONCLUSIONS 1. There is no significant valvuar heart disease present. Minimal tricuspid insufficiency is noted. 2. A small to moderate sized pericardial effusion is present. The effusion is most prominent posteriorly. There is no evidence of hemodynamic compromise. 3. The left ventricular chamber size and systolic function are normal with no resting wall motion abnormalities. 4. The right heart structures appear normal. The RV systolic pressure could not be asessed on this examination. 5. No prior study is available for comparison. Jeane Hdez M.D. (Electronically Signed) Final Date: 30 Sep 2016 18:24 MEASUREMENTS (Male / Female) Normal Values 2D ECHO LV Diastolic Diameter PLAX 4.5 cm 4.2 - 5.9 / 3.9 - 5.3 cm LV Systolic Diameter PLAX 2.6 cm 2.1 - 4.0 cm LV Fractional Shortening PLAX 42.2 % 25 - 46 % LV Ejection Fraction 2D Teich 73.4 % IVS Diastolic Thickness 1.2 cm LVPW Diastolic Thickness 1.1 cm LV Relative Wall Thickness 0.5 RV Internal Dim ED PLAX 2.9 cm 1.9 - 3.8 cm LVOT Diameter 2.6 cm Aortic Root Diameter 3.2 cm LA Systolic Diameter LX 2.6 cm 3.0 - 4.0 / 2.7 - 3.8 cm LA Volume 42.0 cm 18 - 58 / 22 - 52 cm Ascending Aorta Diameter 2.6 cm IVC Diameter Expiration 1.8 cm DOPPLER AV Peak Velocity 103.0 cm/s AV Peak Gradient 4.2 mmHg AV Mean Velocity 71.9 cm/s AV Mean Gradient 2.0 mmHg AV Velocity Time Integral 19.1 cm LVOT Peak Velocity 95.1 cm/s LVOT Peak Gradient 3.6 mmHg LVOT Mean Velocity 63.4 cm/s LVOT Mean Gradient 2.0 mmHg LVOT Velocity Time Integral 17.4 cm LVOT Stroke Volume 92.4 cm AV Area Cont Eq vti 4.8 cm AV Area Cont Eq pk 4.9 cm MV Peak Velocity 86.9 cm/s MV Peak Gradient 3.0 mmHg MV Mean Velocity 53.1 cm/s MV Mean Gradient 1.0 mmHg Mitral E Point Velocity 80.0 cm/s Mitral A Point Velocity 43.4 cm/s Mitral E to A Ratio 1.8 MV PHT Velocity 90.9 cm/s MV Deceleration Tift 417.0 cm/s MV Pressure Half Time 65.4 ms MV Area PHT 3.4 cm MV Deceleration Time 190.0 ms PV Peak Velocity 89.6 cm/s PV Peak Gradient 3.2 mmHg PV Mean Velocity 63.0 cm/s PV Mean Gradient 2.0 mmHg PV Velocity Time Integral 20.3 cm LV E' Lateral Velocity 11.6 cm/s Mitral E to LV E' Lateral Ratio 6.9 LV E' Septal Velocity 10.1 cm/s Mitral E to LV E' Septal Ratio 7.9 DICTATED BY: Lois HDEZ MD DATE/TIME DICTATED:09/30/161823 PHOTOVOLTAIC PANEL INSTALLER:[place] DATE/TIME TRANSCRIBED:09/30/161823 CONFIDENTIAL, DO NOT COPY WITHOUT APPROPRIATE AUTHORIZATION. Disposition Summary Disposition Principal Diagnosis: Pericarditis Additional Diagnosis: UC Discharge Disposition: home or self care Discharge Instructions General Discharge Information Code Status: Full Code Patient's Diet: regular Patient's Activity: as tolerated Follow-Up Instructions/Appts: Please follow up with cardiology within 1 week Please follow-up with GI within 1 week. Please take medication as prescribed. Avoid taking any NSAIDs. Keep holding Humira injection for at least one week. It may be resumed if okay with your primary care doctor or GI doctor when you follow up. Medications at Discharge Discharge Medications: Stop taking the following medications: Adalimumab (Humira Pen) 40 MG/0.8 ML [id number] Inject into fatty tissue EVERY 2 WEEKS Qty = 2 Continue taking these medications: Mesalamine (Lialda) 1.2 GRAM TABLET. 4 Tablet ORAL DAILY Qty = 90 Comments: Last Taken:10/02/16 Time:1700 PTS OWN MED Start taking the following new medications: Prednisone (Prednisone) 10 MG TABLET 1-2 Tablet ORAL DAILY Qty = 30 No Refills Instructions: DATE DOSE 10/03-10/12 20mg daily 10/13-10/22 10mg daily Comments: Last Taken:10/03/16 Time:1000 Pantoprazole Sodium (Protonix) 40 MG TABLET. 1 Tablet ORAL DAILY Qty = 30 No Refills Comments: Last Taken:10/03/16 PEPCID Time:1000 Copies To: JODY BOONE,JT Lnogo; Lois HDEZ MD Attending MD Review Statement Documenting Attending: RUT SOMMER MD Other Findings: The patient was seen and discussed with house staff. Agree with the plan of care upon discharge.
== END 2016-10-03 13:45 | DRG 315 ==
LOC: ERH 16:55 → 1NO 20:09 → ERHI 20:09 → ENTRNSPT 22:26 → 1NO 22:48 → CMPTRNSPT 22:52 → 1NO 09-30 09:17 → ENPENDDIS 10-03 11:39 → 1NO 10-03 13:45
PROVIDERS: Physician Assistant; Student in an Organized Health Care Education/Training Program; ADMIT Student in an Organized Health Care Education/Training Program
DX: I30.9 Acute pericarditis, unspecified (principal); K51.90 Ulcerative colitis, unspecified, without complications; D50.9 Iron deficiency anemia, unspecified
CPT/HCPCS: 1NP; 1NSP; 86618; 80307; 82436; 87045; 93005; 93010; 93306; 96374; 96375; J1644; J2405; J7042